=== PATIENT | male | born 1950 | race American Indian/Alaskan Native ===

== ENCOUNTER 2016-09-15 23:04 | Observation (INO) | payer OTHER ==
--- NOTE | 2016-09-15 23:14 | PDOC ---
History of Present Illness - History of Present Illness Initial Comments: 09/15/16 23:30 Patient is a 66 year old male with significant medical hx of HTN, HLD and DM who is presenting to the ED with intermittent chest pain for one week. Patient complains of chest pain that radiates down his left arm. He reports that his pain started while he was working. Today the patient states that his chest pain significantly worsened and decided to come to the ED for evaluation. He reports that his chest pain relieved after receiving NTG in the ED. Denies fever, chills, shortness of breath, nausea, vomiting, diarrhea, or diaphoresis. <Le Singleton - Last Filed: 09/15/16 23:49> <Dequan Blount - Last Filed: 09/16/16 02:46> - General Stated Complaint: CHEST PAIN Time Seen by Provider: 09/15/16 23:08 Past History <Le Singleton - Last Filed: 09/15/16 23:49> - Past Medical History Diabetes: Yes HTN: Yes Hypercholesterolemia: Yes Thyroid Disease: Yes - Family Disease History Family Disease History: Diabetes: Father - Immunization History Immunization Up to Date: Yes - Psycho/Social/Smoking Cessation Hx Anxiety: No Suicidal Ideation: No Smoking Status: No Smoking History: Never smoked Number of Cigarettes Smoked Daily: 0 Hx Alcohol Use: No Drug/Substance Use Hx: No <Dequan Blount - Last Filed: 09/16/16 02:46> - Past Medical History Allergies/Adverse Reactions: Allergies Allergy/AdvReac Type Severity Reaction Status Date / Time No Known Allergies Allergy Verified 09/15/16 23:13 Home Medications: Ambulatory Orders Aspirin [ASA -] 81 mg PO DAILY 09/16/16 Chlorthalidone [Hygroton -] 25 mg PO DAILY 09/16/16 Levothyroxine [Synthroid -] 125 mcg PO DAILY 09/16/16 Lisinopril [Prinivil] 5 mg PO DAILY 09/16/16 Metformin HCl [Glucophage -] 850 mg PO BID 09/16/16 Simvastatin [Zocor -] 40 mg PO HS 09/16/16 Review of Systems - Review of Systems Comments:: 09/15/16 23:49 GENERAL/CONSTITUTIONAL: No fever or chills. No weakness. HEAD, EYES, EARS, NOSE AND THROAT: No change in vision. No ear pain or discharge. No sore throat. CARDIOVASCULAR: Chest pain. No shortness of breath. RESPIRATORY: No cough, wheezing, or hemoptysis. GASTROINTESTINAL: No nausea, vomiting, diarrhea or constipation. GENITOURINARY: No dysuria, frequency, or change in urination. MUSCULOSKELETAL: No joint or muscle swelling or pain. No neck or back pain. SKIN: No rash NEUROLOGIC: No headache, vertigo, loss of consciousness, or change in strength/ sensation. <Le Singleton - Last Filed: 09/15/16 23:49> *Physical Exam - Vital Signs Last Vital Signs Temp Pulse Resp BP Pulse Ox 97.9 F 67 18 171/94 99 09/15/16 23:13 09/15/16 23:13 09/15/16 23:13 09/15/16 23:13 09/15/16 23:13 - Physical Exam Comments: 09/15/16 23:49 GENERAL: Awake, alert, and fully oriented, in no acute distress HEAD: No signs of trauma EYES: PERRLA, EOMI, sclera anicteric, conjunctiva clear ENT: Auricles normal inspection, hearing grossly normal, nares patent, oropharynx clear without exudates. Moist mucosa NECK: Normal ROM, supple, no lymphadenopathy, JVD, or masses LUNGS: Breath sounds equal, clear to auscultation bilaterally. No wheezes, and no crackles HEART: Regular rate and rhythm, normal S1 and S2, no murmurs, rubs or gallops ABDOMEN: Soft, nontender, normoactive bowel sounds. No guarding, no rebound. No masses EXTREMITIES: Normal range of motion, no edema. No clubbing or cyanosis. No cords, erythema, or tenderness NEUROLOGICAL: Cranial nerves II through XII grossly intact. Normal speech, normal gait SKIN: Warm, Dry, normal turgor, no rashes or lesions noted. ENDOCRINE: No increased thirst. No abnormal weight change. HEMATOLOGIC/LYMPHATIC: No anemia, easy bleeding, or history of blood clots. ALLERGIC/IMMUNOLOGIC: No hives or skin allergy. <Le Singleton - Last Filed: 09/15/16 23:49> ED Treatment Course - LABORATORY CBC & Chemistry Diagram: 09/15/16 23:27 09/15/16 23:27 <Le Singleton - Last Filed: 03/19/17 23:49> - LABORATORY CBC & Chemistry Diagram: 09/15/16 23:27 09/15/16 23:27 <Dequan Blount - Last Filed: 09/16/16 02:46> Medical Decision Making - Medical Decision Making 09/16/16 02:06 This is a 42yo m with PMH DM, hypertension, hyperlipidemia and family history of heart disease who presents with chest pressure with radiation to the LEFT arm associated with mild SOB. He has multiple cardiac risk factors and the HPI is concerning for ACS/cardiac etiology; he is not a candidate for discharge based on the ongoing intermittent chest pain. He has multiple risk factors and particularly, as this has been ongoing, he will be admitted for cardiac evaluation; the troponin is negative and will give ASA 324mg PO. I have endorsed the patient to Dr. Negron for telemetry observation. 09/16/16 02:28 09/16/16 02:36 <Dequan Blount - Last Filed: 09/16/16 02:46> *DC/Admit/Observation/Transfer - Attestations Scribe Attestion: 09/15/16 23:50 Documentation prepared by Le Singleton, acting as medical esthetician for Dequan Blount MD. <Le Singleton - Last Filed: 09/15/16 23:49> - Discharge Dispostion Admit: Yes Decision to Admit order Date/Time: 09/16/16 02:31 - Attestations Physician Attestion: 09/16/16 02:33 I, Dr. Dequan Blount MD, attest that this document has been prepared under my direction and personally reviewed by me in its entirety. I further attest, that it accurately reflects all work, treatment, procedures and medical decision -making performed by me. <Dequan Blount - Last Filed: 09/16/16 02:46> Diagnosis at time of Disposition: Atypical chest pain
[2016-09-15 23:15] VITALS: TEMP 97.9; BMI 25.8
[2016-09-15 23:43] LABS: MCH 22.8 pg (25.7-33.7); MEAN CELL VOLUME 71.4 fl (80-96); MEAN PLT VOLUME 8.1 fl (7.5-11.1); PLATELET COUNT 179 K/MM3 (134-434); RDW 16.5 % (11.9-15.9); WHITE BLOOD COUNT 4.6 K/mm3 (4.0-10.0)
[2016-09-15 23:54] LABS: INR 0.95 (0.82-1.09); PROTHROMBIN TIME (PATIENT) 10.4 SEC (9.98-11.88)
[2016-09-16 00:03] LABS: ALBUMIN 3.6 g/dl (3.4-5.0); ANION GAP 7 (8-16); BILIRUBIN,TOTAL 0.2 mg/dL (0.2-1.0); CALCIUM 8.8 mg/dL (8.5-10.1); CO2 29 mmol/L (21-32); CREATININE 1.1 mg/dL (0.7-1.3); GLUCOSE,RANDOM 115 mg/dL (74-106); MAGNESIUM 2.1 mg/dL (1.8-2.4); PHOSPHOROUS 2.9 mg/dL (2.5-4.9); SGOT/AST 17 U/L (15-37); SGPT/ALT 21 U/L (12-78); TOT PROT 6.8 g/dl (6.4-8.2)
[2016-09-16 00:04] LABS: ALK PHOS 65 U/L (45-117); TROPONIN I < 0.02 ng/ml (0.00-0.05)
[2016-09-16 02:05] LABS: ANISOCYTOSIS 1+; HYPOCHROMIA 1+; MICROCYTOSIS 1+; PLATELET COMMENT2 NO CLOTTING DETECTED; PLATELET COMMENT3 FEW LARGE PLTS; PLATELET ESTIMATE ADEQUATE (NORMAL); POLYCHROMASIA 1+
--- NOTE | 2016-09-16 02:28 | PN ---
<Vero Negron - Last Filed: 09/16/16 02:27> Teaching Attending Note Name of Resident: Roxana Acevedo ATTENDING PHYSICIAN STATEMENT I saw and evaluated the patient. I reviewed the resident's note and discussed the case with the resident. I agree with the resident's findings and plan as documented. SUBJECTIVE: OBJECTIVE: ASSESSMENT AND PLAN: <Carrie Olvera - Last Filed: 09/16/16 03:13> Teaching Attending Note ATTENDING PHYSICIAN STATEMENT I saw and evaluated the patient. I reviewed the resident's note and discussed the case with the resident. I agree with the resident's findings and plan as documented. SUBJECTIVE: Patient is a 66 yo M with a PMHx of HTN, HLD and DM who presents with radiating chest pain for one week. Chest pain is intermittent in nature and radiates down left arm. NO fevers chills, nausea vomiting diarrhea or SOB. Patient reports the chest pain radiates down his left arm. He notes that the pain is worsened by movement. Patient notes associated a tingling sensation in his left arm. Patients pain is resolved upon evaluation. Denies fever, chills, shortness of breath, nausea, vomiting, diarrhea, or diaphoresis. OBJECTIVE: Last Vital Signs Temp Pulse Resp BP Pulse Ox 97.9 F 67 18 171/94 99 09/15/16 23:13 09/15/16 23:13 09/15/16 23:13 09/15/16 23:13 09/16/16 00:30 GENERAL: Awake, alert, and fully oriented, in no acute distress HEENT: Atraumatic. PERRLA, EOMI. Moist mucosa. No JVD CHEST: Mild pain on tenderness upon palpation of left breast. LUNGS: No distress, speaks full sentences, clear to auscultation bilaterally HEART: Regular rate and rhythm, normal S1 and S2, no murmurs, rubs or gallops, peripheral pulses normal and equal bilaterally. ABDOMEN: Soft, nontender, normoactive bowel sounds. No guarding, no rebound. No masses EXTREMITIES: Normal inspection, Normal range of motion, no edema. No clubbing or cyanosis. NEUROLOGICAL: Cranial nerves II through XII grossly intact. Normal speech, normal gait, no focal sensorimotor deficits SKIN: Warm, Dry, normal turgor, no rashes or lesions noted. CBCD WBC 4.6 K/mm3 (4.0-10.0) 09/15/16 23:27 RBC 4.53 M/mm3 (4.00-5.60) 09/15/16 23:27 Hgb 10.3 GM/dL (11.7-16.9) L D 09/15/16 23:27 Hct 32.3 % (35.4-49) L D 09/15/16 23:27 MCV 71.4 fl (80-96) L 09/15/16 23:27 MCHC 32.0 g/dl (32.0-35.9) 09/15/16 23:27 RDW 16.5 % (11.9-15.9) H 09/15/16 23:27 Plt Count 179 K/MM3 (134-434) 09/15/16 23:27 MPV 8.1 fl (7.5-11.1) 09/15/16 23:27 CMP Sodium 140 mmol/L (136-145) 09/15/16 23:27 Potassium 3.8 mmol/L (3.5-5.1) D 09/15/16 23:27 Chloride 104 mmol/L (98-107) 09/15/16 23:27 Carbon Dioxide 29 mmol/L (21-32) 09/15/16 23:27 Anion Gap 7 (8-16) L 09/15/16 23:27 BUN 13 mg/dL (7-18) 09/15/16 23:27 Creatinine 1.1 mg/dL (0.7-1.3) 09/15/16 23:27 Creat Clearance w eGFR > 60 (>60) 09/15/16 23:27 Calcium 8.8 mg/dL (8.5-10.1) 09/15/16 23:27 Total Bilirubin 0.2 mg/dL (0.2-1.0) D 09/15/16 23:27 AST 17 U/L (15-37) 09/15/16 23:27 ALT 21 U/L (12-78) 09/15/16 23:27 Alkaline Phosphatase 65 U/L (45-117) D 09/15/16 23:27 Total Protein 6.8 g/dl (6.4-8.2) 09/15/16 23:27 Albumin 3.6 g/dl (3.4-5.0) 09/15/16 23:27 Chest X-Ray Negative ECG Sinus bradycardia @ 54 bpm Mild T wave flattening V1 V2 V4 V5 ASSESSMENT AND PLAN: Patient is a 66 yo M with a PMHx of HTN, HLD and DM who presents with chest pain. 1.) Chest pain -Atypical -Rule ACS -Heart score 3 -Continue aspirin -O2 2 L nasal cannula -Check lipid profile -Continue with aspirin in AM -Continue with statin -Add metoprolol 2.) Microcytic anemia -Stool cult -Iron studies -Needs coloscopy Outpatient 3.) Diabetes -Finger sticks -metformin -check A1C -Rapid acting insulin 4.) HTN -Continue with home meds 5.) HLD -Check lipid panel -Continue home meds DVT ppx -SCDS -Place on Tele/Obs Documentation prepared by Carrie Olvera, acting as senior medical transcriptionist for Vero Negron D.O.
--- NOTE | 2016-09-16 03:26 | HP ---
CHIEF COMPLAINT: Left side chest pain PCP: Dr. Caruso ([facility]) now sees Dr. Jefferson (?) HISTORY OF PRESENT ILLNESS: Patient is a 66 year old male presented with the chief complaints of left sided chest pain. A/c to the patient, he started having left sided chest pain since a week, 5/10 in intensity, pressure type, radiating towards his left arm, gets tingling sensation over the left arm, reproducible, aggravated on movement, relieved at rest, not associated with nausea, vomiting, sob, cough or palpitation. Patient reports that after he was given aspirin and nitroglycerine en route, his chest pain resolved. Denies headache, fever, chills, rigors, sweating, abdominal pain. Bowel/Bladder habit normal. Appetite-normal. Sleep-disturbed. ER course was notable for: (1) Afebrile, Troponin 0.02 (2) EKG: Sinus bradycardia @ 54 bpm; Mild T wave flattening V1 V2 V4 V5 (3) En route was given 324 mg of aspirin and Nitroglycerine Recent Travel: None PAST MEDICAL HISTORY: DM, Hypertension, Hyperlipidemia, Hypothyroidism, Pneumonia with pleural effusion requiring chest tube insertion PAST SURGICAL HISTORY: None Social History: Smoking: Chews tobacco since 9-10 years, denies smoking Alcohol: Denies Drugs: Denies Family History: Unknown Allergies No Known Allergies Allergy (Verified 09/15/16 23:13) HOME MEDICATIONS: Home Medications Medication Instructions Recorded Aspirin [ASA -] 81 mg PO DAILY 09/16/16 Chlorthalidone [Hygroton -] 25 mg PO DAILY 09/16/16 Levothyroxine [Synthroid -] 125 mcg PO DAILY 09/16/16 Lisinopril [Prinivil] 5 mg PO DAILY 09/16/16 Metformin HCl [Glucophage -] 850 mg PO BID 09/16/16 Simvastatin [Zocor -] 40 mg PO HS 09/16/16 REVIEW OF SYSTEMS CONSTITUTIONAL: Absent: fever, chills, diaphoresis, generalized weakness, malaise, loss of appetite, weight change HEENT: Absent: rhinorrhea, nasal congestion, throat pain, throat swelling, difficulty swallowing, mouth swelling, ear pain, eye pain, visual changes CARDIOVASCULAR: Present: Chest pain Absent:syncope, palpitations, irregular heart rate, lightheadedness, peripheral edema RESPIRATORY: Absent: cough, shortness of breath, dyspnea with exertion, orthopnea, wheezing, stridor, hemoptysis GASTROINTESTINAL: Absent: abdominal pain, abdominal distension, nausea, vomiting, diarrhea, constipation, melena, hematochezia GENITOURINARY: Absent: dysuria, frequency, urgency, hesitancy, hematuria, flank pain, genital pain MUSCULOSKELETAL: Absent: myalgia, arthralgia, joint swelling, back pain, neck pain SKIN: Absent: rash, itching, pallor HEMATOLOGIC/IMMUNOLOGIC: Absent: easy bleeding, easy bruising, lymphadenopathy, frequent infections ENDOCRINE: Absent: unexplained weight gain, unexplained weight loss, heat intolerance, cold intolerance NEUROLOGIC: Absent: headache, focal weakness or paresthesias, dizziness, unsteady gait, seizure, mental status changes, bladder or bowel incontinence PSYCHIATRIC: Absent: anxiety, depression, suicidal or homicidal ideation, hallucinations. PHYSICAL EXAMINATION Vital Signs - 24 hr 09/15/16 09/16/16 23:13 00:30 Temperature 97.9 F Pulse Rate 67 Respiratory 18 Rate Blood Pressure 171/94 O2 Sat by Pulse 99 99 Oximetry (%) GENERAL: Awake, alert, and fully oriented, in no acute distress. HEAD: Normal with no signs of trauma. EYES: EOM intact, no pallor or icterus EARS, NOSE, THROAT: Ears normal, nares patent, oropharynx clear without exudates. Moist mucous membranes. NECK: Normal range of motion, supple without lymphadenopathy, JVD, or masses. LUNGS: Breath sounds equal, clear to auscultation bilaterally. No wheezes, and no crackles. No accessory muscle use. HEART: Regular rate and rhythm, normal S1 and S2 without murmur, tenderness on palpation of the left side of the chest ABDOMEN: Soft, nontender, not distended, normoactive bowel sounds, no guarding, no rebound, no masses. No hepatomegaly or splenomegaly. MUSCULOSKELETAL: Normal range of motion at all joints. No bony deformities or tenderness. No CVA tenderness. UPPER EXTREMITIES: 2+ pulses, warm, well-perfused. No cyanosis. No clubbing. No peripheral edema. LOWER EXTREMITIES: 2+ pulses, warm, well-perfused. No calf tenderness. No peripheral edema. NEUROLOGICAL: Cranial nerves II-XII intact. Normal speech. Normal gait. PSYCHIATRIC: Cooperative. Good eye contact. Appropriate mood and affect. SKIN: Warm, dry, normal turgor, no rashes or lesions noted, normal capillary refill. Laboratory Results - last 24 hr 09/15/16 09/15/16 09/15/16 23:10 23:27 23:27 WBC 4.6 RBC 4.53 Hgb 10.3 L D Hct 32.3 L D MCV 71.4 L MCHC 32.0 RDW 16.5 H Plt Count 179 MPV 8.1 Neutrophils % 23.0 L D Lymphocytes % 65.0 H D Monocytes % 5.0 Eosinophils % 3.0 Reactive Lymphocytes 4 Platelet Estimate Adequate Platelet Comment No clotting detected Polychromasia 1+ Hypochromic-Microcytic 1+ Anisocytosis 1+ Microcytosis 1+ INR 0.95 Sodium 140 Potassium 3.8 D Chloride 104 Carbon Dioxide 29 Anion Gap 7 L BUN 13 Creatinine 1.1 Creat Clearance w eGFR > 60 Random Glucose 115 H D Lactic Acid Calcium 8.8 Phosphorus 2.9 Magnesium 2.1 Total Bilirubin 0.2 D AST 17 ALT 21 Alkaline Phosphatase 65 D Creatine Kinase 88 Troponin I < 0.02 B-Natriuretic Peptide 27.67 Total Protein 6.8 Albumin 3.6 Lipase 175 Blood Type Antibody Screen 09/15/16 09/15/16 23:27 23:27 WBC RBC Hgb Hct MCV MCHC RDW Plt Count MPV Neutrophils % Lymphocytes % Monocytes % Eosinophils % Reactive Lymphocytes Platelet Estimate Platelet Comment Polychromasia Hypochromic-Microcytic Anisocytosis Microcytosis INR Sodium Potassium Chloride Carbon Dioxide Anion Gap BUN Creatinine Creat Clearance w eGFR Random Glucose Lactic Acid 1.109 Calcium Phosphorus Magnesium Total Bilirubin AST ALT Alkaline Phosphatase Creatine Kinase Troponin I B-Natriuretic Peptide Total Protein Albumin Lipase Blood Type B POSITIVE Antibody Screen Negative ASSESSMENT/PLAN: Patient is a 66 year old male with significant Past medical history of Hypertension, Hyperlipidemia, Diabetes Mellitus, Hypothyroidism presented with the chief complaints of left sided chest pain. # Atypical chest pain-r/o ACS Could also be due to musculoskeletal as it is reproducible. Patient presented with left sided chest pain x 1 week, radiating towards the left arm with tingling sensation En route was given 324mg of Aspirin and Nitroglycerine and pain resolved completely EKG: Sinus bradycardia @ 54 bpm; Mild T wave flattening V1 V2 V4 V5 Troponin x 1 negative, repeat @ 6am and trend Placed in observation/Telemetry Continuous cardiac cath rn. Continue baby aspirin EKG tomorrow # Hypertension-stable Continue Lisinopril 5mg and Chlorthalidone 25mg Consider adding a beta baldomero # Diabetes Mellitus HbA1c pending Finger stick glucose monitoring Hold Metformin and continue with Insulin sliding scale # Hyperlipidemia Continue Lipitor 20 mg # Hypothyroidism T3, T4 pending Continue Levothyroxine 125 mcg # Microcytic anemia Iron studies ordered for am Stool occult blood Would consider colonoscopy as outpatient # FEN Not on IV fluids Electrolytes to be repeated Diabetic diet # Prophylaxis For DVT- On Scds, patient is ambulating and may be discharged soon. For GI- Not indicated # Code status: Full Code # Dispo: Placed on observation. Duration of stay unknown. Illness, Investigation and Plan of care explained to the patient. He verbalized understanding. Case seen and discussed with Dr. Negron. Visit type - Emergency Visit Emergency Visit: Yes ED Registration Date: 09/16/16 Care time: The patient presented to the Emergency Department on the above date and was hospitalized for further evaluation of their emergent condition. - New Patient This patient is new to me today: Yes Date on this admission: 09/16/16 - Critical Care Critical Care patient: No
[2016-09-16 03:37] LABS: URINE APPEARANCE CLEAR; URINE BILIRUBIN NEGATIVE (NEGATIVE); URINE BLOOD NEGATIVE (NEGATIVE); URINE COLOR LTYELLOW; URINE GLUCOSE (UA) NEGATIVE (NEGATIVE); URINE KETONE NEGATIVE (NEGATIVE); URINE LEUK ESTERASE NEGATIVE (NEGATIVE); URINE NITRITE NEGATIVE (NEGATIVE); URINE PROTEIN NEGATIVE (NEGATIVE); URINE UROBILINOGEN NEGATIVE E.U./dl (0.2-1.0)
[2016-09-16 05:41] LABS: FREE T4 1.06 ng/dl (0.76-1.16); THYROID STIMULATING HORMONE 1.63 uIU/ml (0.358-3.74)
[2016-09-16] MEDS ORDERED: LEVOTHYROXINE NA 125 MCG TABLET (FP) PO SCH (07:00)
[2016-09-16 07:10] LABS: MCH 22.7 pg (25.7-33.7); MCHC 31.6 g/dl (32.0-35.9); MEAN CELL VOLUME 71.7 fl (80-96); MEAN PLT VOLUME 7.7 fl (7.5-11.1); PLATELET COUNT 163 K/MM3 (134-434); WHITE BLOOD COUNT 4.1 K/mm3 (4.0-10.0)
[2016-09-16] MEDS: INSULIN SLIDING SCALE (NOVOLOG) 1 VIAL SQ SCH ×2 (07:37→11:43)
[2016-09-16 07:50] LABS: ALBUMIN 3.5 g/dl (3.4-5.0); ANION GAP 5 (8-16); BILIRUBIN,TOTAL 0.3 mg/dL (0.2-1.0); CALCIUM 8.7 mg/dL (8.5-10.1); CHOLESTEROL 160 mg/dL (50-200); CO2 29 mmol/L (21-32); CREATININE 0.9 mg/dL (0.7-1.3); GLUCOSE,RANDOM 108 mg/dL (74-106); SGOT/AST 15 U/L (15-37); SGPT/ALT 22 U/L (12-78)
[2016-09-16 07:51] LABS: ALK PHOS 52 U/L (45-117); TOT PROT 6.6 g/dl (6.4-8.2)
[2016-09-16 07:52] LABS: LDL CHOLESTEROL (ONLY SJRH) 84 mg/dL (5-100)
[2016-09-16 08:49] LABS: MAGNESIUM 2.2 mg/dL (1.8-2.4); PHOSPHOROUS 2.9 mg/dL (2.5-4.9)
[2016-09-16 08:51] LABS: FREE T4 1.07 ng/dl (0.76-1.16)
[2016-09-16 08:56] LABS: THYROID STIMULATING HORMONE 1.65 uIU/ml (0.358-3.74)
[2016-09-16] MEDS ORDERED: CHLORTHALIDONE 25 MG TABLET PO SCH (10:00)
[2016-09-16] MEDS ORDERED: LISINOPRIL 5 MG TABLET (FP) PO SCH (10:00)
[2016-09-16] MEDS ORDERED: ASPIRIN 81 MG CHEWABLE TABLETS PO SCH (10:00)
[2016-09-16 10:19] LABS: TROPONIN I < 0.02 ng/ml (0.00-0.05)
--- NOTE | 2016-09-16 11:38 | CON.CARD ---
Consult Consult Specialty:: Cardiology Referred by:: Hospitalist Medicine Reason for Consultation:: Chest pain - History of Present Illness Chief Complaint: Chest pain History of Present Illness: Patient is a 66 yo M with a PMHx of HTN, HLD, DM, hypothyroidism, pneumonia with pleural effusion requiring chest tube insertion presented with sharp, non- exertional, non-positional atypical chest pain with radiation down left arm for last week. He denies associated sxs pf dyspnea, near or true syncope, orthopnea , PND, LE edema, palpitations. Currently asymptomatic. - History Source History Provided By: Patient Limitations to Obtaining History: No Limitations - Past Medical History Cardio/Vascular: Yes: HTN, Hyperlipdemia Endocrine: Yes: Diabetes Mellitus, Hypothyroidism - Alcohol/Substance Use Hx Alcohol Use: No - Smoking History Smoking history: Never smoked Aproximately how many cigarettes per day: 0 Home Medications - Allergies Allergies/Adverse Reactions: Allergies Allergy/AdvReac Type Severity Reaction Status Date / Time No Known Allergies Allergy Verified 09/15/16 23:13 - Home Medications Home Medications: Ambulatory Orders Aspirin [ASA -] 81 mg PO DAILY 09/16/16 Chlorthalidone [Hygroton -] 25 mg PO DAILY 09/16/16 Levothyroxine [Synthroid -] 125 mcg PO DAILY 09/16/16 Lisinopril [Prinivil] 5 mg PO DAILY 09/16/16 Metformin HCl [Glucophage -] 850 mg PO BID 09/16/16 Simvastatin [Zocor -] 40 mg PO HS 09/16/16 Review of Systems - Review of Systems Cardiovascular: reports: Chest Pain Vital Signs: Vital Signs Temperature 97.9 F 09/15/16 23:13 Pulse Rate 58 L 09/16/16 07:10 Respiratory Rate 19 09/16/16 07:10 Blood Pressure 127/78 09/16/16 07:10 O2 Sat by Pulse Oximetry (%) 98 09/16/16 07:10 Constitutional: Yes: No Distress, Calm Neck: Yes: Supple Respiratory: Yes: Regular, CTA Bilaterally Gastrointestinal: Yes: Normal Bowel Sounds, Soft Cardiovascular: Yes: Regular Rate and Rhythm JVD: No Carotid Bruit: No Heart Sounds: Yes: S1, S2 Edema: No - Other Data Labs, Other Data: CBC, BMP 09/16/16 05:52 09/16/16 05:52 INR, PTT INR 0.95 (0.82-1.09) 09/15/16 23:10 Troponin, BNP 09/16/16 09/16/16 05:52 05:52 Troponin I < 0.02 Cancelled Troponin, BNP 09/16/16 09/16/16 05:52 05:52 Troponin I < 0.02 Cancelled SB @ 54 with nonspec T w changes Imaging - Results Chest X-ray: Report Reviewed (NAD) Problem List - Problems (1) Atypical chest pain Code(s): R07.89 - OTHER CHEST PAIN (2) Hypertension Code(s): I10 - ESSENTIAL (PRIMARY) HYPERTENSION Qualifiers: Hypertension type: essential hypertension Qualified Code(s): I10 - Essential (primary) hypertension (3) Hyperlipidemia Code(s): E78.5 - HYPERLIPIDEMIA, UNSPECIFIED Qualifiers: Hyperlipidemia type: pure hypercholesterolemia Qualified Code(s): E78.00 - Pure hypercholesterolemia, unspecified; E78.0 - Pure hypercholesterolemia (4) Hypothyroidism Code(s): E03.9 - HYPOTHYROIDISM, UNSPECIFIED Qualifiers: Hypothyroidism type: unspecified Qualified Code(s): E03.9 - Hypothyroidism, unspecified (5) Diabetes mellitus Code(s): E11.9 - TYPE 2 DIABETES MELLITUS WITHOUT COMPLICATIONS Qualifiers: Diabetes mellitus type: type 2 Assessment/Plan 1. Chest pain syndrome with atypical features 2. HTN 3. DM 4. Hyperlipidemia 5. Anemia 6. Hypothyroidism P:1. Ruled out for AL 2. Echo to assess LV and valve fxn 3. ETT r/o ischemia 4. Agree with ASA 81 qd, lisinopril 5 qd, chlorthalidone 25 qd, lipitor 20 qd 5. Further recommendations to follow, thank you for consultative opportunity
--- NOTE | 2016-09-16 14:43 | TRE ---
Protocol Name : BILLY Max Work Load (METS*10) : 85 Time In Exercise Phase : 00:07:00 Max. Systolic BP : 147 mmHg Max Diastolic BP : 76 mmHg Max Heart Rate : 150 BPM Max Predicted Heart Rate : 156 BPM Attending Physician : DR. CARRANZA Reason For Termination : Target Heart Rate Achieved Reason for Test : CHEST PAIN Stress Protocol : BILLY Rest HR : 53 BPM PeakEx METs : 8.5 METS Arrhythmias : No Arrhythmias Resting ECG : NSR NON-SPECIFIC ST-T CHANGES Recovery ECG Response (OLD) : Chest Pain : No Chest Pain HR Response To Exercise : Normal Overall HR Response To Exercise BP Response To Exercise : Normal Resting BP with Appropriate Response Functional Capacity : Normal Diagnosis : 1. Borderline abnormal stress test 2. Appropriate blood pressure response 3. Fair exercise tolerance and capacity 4. [address] segment depression was seen in inferior and lateral leads (II ,III, AVF, V5, V6) Confirmed by ALEAH CARRANZA MD ([id number]) on 09/16/2016 2:42:46 PM
--- NOTE | 2016-09-16 15:56 | DS ---
Physical Exam: SUBJECTIVE: Patient seen and examined. No further c/o chest pain. Denies SOB, palpitations, abdominal pain, N/V/D. Exercise stress test and echo done. OBJECTIVE: Vital Signs 3 Period Temp Pulse Resp BP Sys/العراقي Pulse Ox Last 24 Hr 58 19 127/78 98 PHYSICAL EXAM GENERAL: The patient is awake, alert, and fully oriented, in no acute distress. HEAD: Normal with no signs of trauma. EYES: PERRL, extraocular movements intact, sclera anicteric, conjunctiva clear. ENT: Ears normal, nares patent, oropharynx clear without exudates, moist mucous membranes. NECK: Trachea midline, full range of motion, supple. LUNGS: Breath sounds equal, clear to auscultation bilaterally, no wheezes, no crackles, no accessory muscle use. HEART: Regular rate and rhythm, S1, S2 without murmur, rub or gallop. ABDOMEN: Soft, nontender, nondistended, normoactive bowel sounds, no guarding, no rebound, no hepatosplenomegaly, no masses. EXTREMITIES: 2+ pulses, warm, well-perfused, no edema. NEUROLOGICAL: Cranial nerves II through XII grossly intact. Normal speech, gait not observed. PSYCH: Normal mood, normal affect. SKIN: Warm, dry, normal turgor, no rashes or lesions noted. LABS Laboratory Results - last 24 hr 3 09/16/16 09/16/16 09/16/16 03:25 05:52 05:52 WBC 4.1 RBC 4.63 Hgb 10.5 L Hct 33.2 L MCV 71.7 L MCHC 31.6 L RDW 17.0 H Plt Count 163 MPV 7.7 Neutrophils % 12.0 L D Lymphocytes % 61.0 H Monocytes % 3.0 L Eosinophils % 2.0 Basophils % 1.0 D Differential Comment Manual diff done Reactive Lymphocytes 21 D Sodium Potassium Chloride Carbon Dioxide Anion Gap BUN Creatinine Creat Clearance w eGFR POC Glucometer Random Glucose Calcium Ferritin Total Bilirubin AST ALT Alkaline Phosphatase Creatine Kinase Troponin I Total Protein Albumin Triglycerides 96 Cholesterol 160 Total LDL Cholesterol 84 HDL Cholesterol 68 H Urine Color Ltyellow Urine Appearance Clear Urine pH 6.0 Ur Specific [place] 1.017 Urine Protein Negative Urine Glucose (UA) Negative Urine Ketones Negative Urine Blood Negative Urine Nitrite Negative Urine Bilirubin Negative Urine Urobilinogen Negative Ur Leukocyte Esterase Negative 3 09/16/16 09/16/16 09/16/16 05:52 05:52 05:52 WBC RBC Hgb Hct MCV MCHC RDW Plt Count MPV Neutrophils % Lymphocytes % Monocytes % Eosinophils % Basophils % Differential Comment Reactive Lymphocytes Sodium 139 Potassium 4.1 Chloride 105 Carbon Dioxide 29 Anion Gap 5 L BUN 15 Creatinine 0.9 Creat Clearance w eGFR > 60 POC Glucometer Random Glucose 108 H Calcium 8.7 Ferritin 3.799 L Total Bilirubin 0.3 D AST 15 ALT 22 Alkaline Phosphatase 52 Creatine Kinase 71 Cancelled Troponin I < 0.02 Cancelled Total Protein 6.6 Albumin 3.5 Triglycerides Cholesterol Total LDL Cholesterol HDL Cholesterol Urine Color Urine Appearance Urine pH Ur Specific [place] Urine Protein Urine Glucose (UA) Urine Ketones Urine Blood Urine Nitrite Urine Bilirubin Urine Urobilinogen Ur Leukocyte Esterase 3 09/16/16 09/16/16 07:35 11:42 WBC RBC Hgb Hct MCV MCHC RDW Plt Count MPV Neutrophils % Lymphocytes % Monocytes % Eosinophils % Basophils % Differential Comment Reactive Lymphocytes Sodium Potassium Chloride Carbon Dioxide Anion Gap BUN Creatinine Creat Clearance w eGFR POC Glucometer 127.98415 141.84679 Random Glucose Calcium Ferritin Total Bilirubin AST ALT Alkaline Phosphatase Creatine Kinase Troponin I Total Protein Albumin Triglycerides Cholesterol Total LDL Cholesterol HDL Cholesterol Urine Color Urine Appearance Urine pH Ur Specific [place] Urine Protein Urine Glucose (UA) Urine Ketones Urine Blood Urine Nitrite Urine Bilirubin Urine Urobilinogen Ur Leukocyte Esterase Exercise Stress Test: 1. Borderline abnormal stress test. 2. Appropriate blood pressure response. 3. Fair exercise tolerance and capacity 4. 1mm ST segment depression seen in inferior and lateral leads: II, II, aVF, V5 , V6 HOSPITAL COURSE: Date of Admission:09/16/16 Date of Discharge: 09/16/16 This is a 66 year old male with a past medical history of DM, Hypertension, Hyperlipidemia, Hypothyroidism, Pneumonia with pleural effusion requiring chest tube insertion who was admitted for chest pain evaluation. Pt states he has been having chest pain for about a week. Denies any aggravating or alleviating factors. He was ruled out for acute HI, troponins negative. He underwent exercise stress testing. Discussed results with cardiology who felt that ST depressions were not significant as they were less than 2mm. Pt with no further chest pain. Cleared for outpatient follow up with cardiology. Discussed at length with patient and urged to follow up with cardiology within one week. Echo report is still pending. Cardiology aware, will follow up as outpatient. ASSESSMENT AND PLAN Atypical chest pain - R/o for HI, Stress test with no significant findings. - outpatient cardiology follow up. DM - A1c 6.6, good control, cont f/u with PCP at [facility]. HTN - BP stable. cont current home medications. HLD - LDL 84, cont home zocor Anemia - f/u with PCP at [facility], likely iron deficiency. Hypothyroidism - TSH WNL, cont current home dosing Dispo: Pt dc home witho outpatient cardiology and PCP follow up. Minutes to complete discharge: 45 Discharge Summary Reason For Visit: CHEST PAIN Current Active Problems Atypical chest pain (Acute) Diabetes mellitus (Acute) Hyperlipidemia (Acute) Hypertension (Acute) Hypothyroidism (Acute) Condition: Good - Instructions Diet, Activity, Other Instructions: Return to the ER for new or worsening Chest pain. You had a stress test and an echocardiogram. Please follow up with Dr. Velazquez. If Dr. Velazquez does not take your insurance, please follow up with [facility] to obtain a layer off there. Follow up with your primary care provider at [facility] within 1-2 weeks. You may resume your normal activities. You should eat a low sodium, low fat diet. Referrals: Derek Velazquez MD [Staff Physician] - Disposition: HOME - Home Medications Comprehensive Discharge Medication List: Ambulatory Orders Amlodipine Besylate [Norvasc -] 2.5 mg PO DAILY #30 tablet 09/16/16 Aspirin [ASA -] 81 mg PO DAILY 09/16/16 Levothyroxine [Synthroid -] 125 mcg PO DAILY 09/16/16 Lisinopril [Prinivil] 5 mg PO DAILY 09/16/16 Metformin HCl [Glucophage -] 850 mg PO BID 09/16/16 Simvastatin [Zocor -] 40 mg PO HS 09/16/16 This patient is new to me today: Yes Date on this admission: 09/16/16 Emergency Visit: Yes ED Registration Date: 09/15/16 Care time: The patient presented to the Emergency Department on the above date and was hospitalized for further evaluation of their emergent condition. Critical Care patient: No - Discharge Referral Referred to [facility] Med P.C.: No
[2016-09-16 16:55] VITALS: BP 149/76; PULSE 60
[2016-09-16] MEDS ORDERED: ATORVASTATIN CA 20 MG TABLET (FP) PO SCH (22:00)
[2016-09-17 06:06] LABS: SERUM IRON 28 ug/dL (38-169); TOTAL IRON BINDING CAPACITY 429 ug/dL (250-450); UIBC 401 ug/dL (111-343)
[2016-09-17] MEDS ORDERED: amLODIPine BESYLATE 2.5 MG TABLET (FP) PO SCH (10:00)
--- NOTE | 2016-09-17 17:12 | EKG ---
Test Reason : Blood Pressure : / mmHG Vent. Rate : 054 BPM Atrial Rate : 054 BPM P-R Int : 162 ms QRS Dur : 112 ms QT Int : 418 ms P-R-T Axes : 073 054 -36 degrees QTc Int : 396 ms SINUS BRADYCARDIA WITH SINUS ARRHYTHMIA T WAVE ABNORMALITY, CONSIDER INFEROLATERAL ISCHEMIA ABNORMAL ECG WHEN COMPARED WITH ECG OF 01-OCT-2008 05:10, VENT. RATE HAS DECREASED BY 36 BPM T WAVE VARIATION Confirmed by DILLON VITALE, ALEAH ([id number]) on 09/17/2016 5:12:27 PM Referred By: Confirmed By:ALEAH CARRANZA MD
== END 2016-09-16 17:00 | disposition home or self-care (01) ==
LOC: JER 23:04 → JERBED 09-16 02:34
PROVIDERS: ADMIT Internal Medicine; ATTEND Nurse Practitioner Family
DX: R07.89 Other chest pain (principal); E11.9 Type 2 diabetes mellitus without complications; E78.5 Hyperlipidemia, unspecified; I10 Essential (primary) hypertension; E03.9 Hypothyroidism, unspecified; D50.9 Iron deficiency anemia, unspecified
CPT/HCPCS: 36415; 71010-TC; 71020-TC; 80053; 80061; 81003; 82550; 82728; 83036; 83540; 83550; 83605; 83690; 83721; 83735; 83880; 84100; 84439; 84443; 84466; 84481; 84484; 85025; 85610; 86850; 86900; 86901; 93005; 93010; 93017; 93018; 93306-TC; 99285-25; G0378

== ENCOUNTER 2018-05-24 18:25 | Emergency (ER) | payer OTHER ==
[2018-05-24 18:32] VITALS: BP 139/63; PULSE 100; TEMP 98.3; BMI 25.0
--- NOTE | 2018-05-24 18:45 | PDOC ---
History of Present Illness - General Chief Complaint: Respiratory Stated Complaint: FLU LIKE SYMPTOMS Time Seen by Provider: 05/24/18 18:41 History Source: Patient Exam Limitations: No Limitations - History of Present Illness Initial Comments: 05/24/18 18:42 Patient came for evaluation of persistent cough and fevers over the past week. States has been using kwqa-rhy-[id number] medications week long but does not feel is improving and in fact becoming worse. Did not take his temperature but states he had fevers and chills, and has been coughing up copious amount of thick yellowish phlegm. Timing/Duration: reports: getting worse Severity: reports: mild Associated Symptoms: reports: cough, fever/chills, nasal congestion, nasal drainage Past History - Travel Traveled outside of the country in the last 30 days: No Close contact w/someone who was outside of country & ill: No - Past Medical History Allergies/Adverse Reactions: Allergies Allergy/AdvReac Type Severity Reaction Status Date / Time No Known Allergies Allergy Verified 09/15/16 23:13 Home Medications: Ambulatory Orders Amlodipine Besylate [Norvasc -] 2.5 mg PO DAILY #30 tablet 09/16/16 Aspirin [ASA -] 81 mg PO DAILY 09/16/16 Levothyroxine [Synthroid -] 125 mcg PO DAILY 09/16/16 Lisinopril [Prinivil] 5 mg PO DAILY 09/16/16 Simvastatin [Zocor -] 40 mg PO HS 09/16/16 metFORMIN HCL [Glucophage -] 850 mg PO BID 09/16/16 Albuterol Sulfate Inhaler - [Ventolin HFA Inhaler -] 1 - 2 inh PO Q4H #1 inhaler 05/24/18 Azithromycin [Zithromax -] 250 mg PO UTDICT #6 tab 05/24/18 COPD: No Diabetes: Yes HTN: Yes Hypercholesterolemia: Yes Thyroid Disease: Yes - Family Disease History Family Disease History: Diabetes: Father - Immunization History Immunization Up to Date: Yes - Suicide/Smoking/Psychosocial Hx Smoking Status: No Smoking History: Never smoked Number of Cigarettes Smoked Daily: 0 Hx Alcohol Use: No Drug/Substance Use Hx: No Review of Systems - Review of Systems Able to Perform ROS?: Yes Is the patient limited Guatemalan proficient: Yes Constitutional: Yes: Symptoms Reported, See HPI, Chills, Fever, Loss of Appetite , Malaise HEENTM: Yes: Symptoms Reported, Nose Congestion, Throat Pain Respiratory: Yes: Symptoms reported, See HPI, Cough, Shortness of Breath, Wheezing Musculoskeletal: No: Symptoms Reported Neurological: No: Symptoms reported All Other Systems: Reviewed and Negative *Physical Exam - Vital Signs Last Vital Signs Temp Pulse Resp BP Pulse Ox 98.3 F 100 H 20 139/63 100 05/24/18 18:31 05/24/18 18:31 05/24/18 18:31 05/24/18 18:31 05/24/18 18:31 - Physical Exam General Appearance: Yes: Nourished, Appropriately Dressed, Apparent Distress, Mild Distress HEENT: positive: CHESTER, Normal ENT Inspection, TMs Normal (congested but land pryor easily v), Pharynx Normal (with posterio), Nasal Congestion, Rhinorrhea Neck: positive: Supple. negative: Tender, Lymphadenopathy (R), Lymphadenopathy (L) Respiratory/Chest: positive: Decreased Breath Sounds. negative: Chest Tender, Lungs Clear, Respiratory Distress, Wheezing (tight and diminished breath sounds) Gastrointestinal/Abdominal: positive: Soft. 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 Much improved after 2 duonebs. Will receive meds tomorrow at [facility]. *DC/Admit/Observation/Transfer Diagnosis at time of Disposition: Upper respiratory infection, acute - Discharge Dispostion Disposition: HOME Condition at time of disposition: Stable Decision to Admit order: No - Referrals - Patient Instructions Printed Discharge Instructions: DI for Acute Bronchitis Additional Instructions: Rest, drink lots of fluids: Teas, water, soups, Pedialyte Saltwater gargles Steamy showers/seem to face break up mucus Avoid contact with others until fevers and cough resolved Lots of handwashing and good hygiene Continue [id number] medications for symptomatic relief Tylenol or Motrin for fever and pain Continue albuterol nebulizers every 4-6 hours for the next 2 days then as needed for continued cough Azithromycin as directed Followup with private physician in one to 2 days Return to emergency department / pediatric hospital for worsened symptoms, fevers, dehydration - Post Discharge Activity Forms/Work/School Notes: Back to Work
[2018-05-24] MEDS: ALBUTEROL SO4 2.5/IPRATROPIUM 0.5 INH SOL 3 ML VIAL.NEB. NEB SCH ×2 (18:50→19:08)
== END 2018-05-24 19:30 | disposition home or self-care (01) ==
LOC: JERFT 18:25
PROC: 3E0F7GC Introduction of Other Therapeutic Substance into Respiratory Tract, Via Natural or Artificial Opening (ICD-10-PCS; principal; 2018-05-24)
DX: J06.9 Acute upper respiratory infection, unspecified (principal); I10 Essential (primary) hypertension; E78.00 Pure hypercholesterolemia, unspecified; E11.9 Type 2 diabetes mellitus without complications; Z79.84 Long term (current) use of oral hypoglycemic drugs; E03.9 Hypothyroidism, unspecified
CPT/HCPCS: 94640; 99281-25

== ENCOUNTER 2019-02-05 22:30 | Inpatient (IN) | payer OTHER ==
[2019-02-06] MEDS ORDERED: METOCLOPRAMIDE HCL INJECTION 10 MG/2 ML VIAL IVPB ONE (00:44)
[2019-02-06] MEDS ORDERED: SODIUM CHLORIDE 1,000 ML IV STA (00:44)
[2019-02-06] MEDS ORDERED: ACETAMINOPHEN 1000 MG/100 ML VIAL (NON FORMULARY) IVPB ONE (00:44)
[2019-02-06] MEDS ORDERED: ACETAMINOPHEN INJECTION 100 ML IVPB ONE (01:22)
[2019-02-06] MEDS ORDERED: METOCLOPRAMIDE HCL INJECTION 10 MG/2 ML VIAL ONE (01:23)
[2019-02-06 01:25] LABS: PH,URINE 7.5 (5.0-8.0); URINE APPEARANCE CLEAR; URINE BILIRUBIN NEGATIVE (NEGATIVE); URINE COLOR DK YELLOW; URINE GLUCOSE (UA) NEGATIVE (NEGATIVE); URINE KETONE NEGATIVE (NEGATIVE); URINE LEUK ESTERASE NEGATIVE (NEGATIVE); URINE NITRITE NEGATIVE (NEGATIVE); URINE PROTEIN NEGATIVE (NEGATIVE)
[2019-02-06 01:31] LABS: BASO % 0.5 % (0-2.0); EOS % 2.8 % (0-4.5); HEMATOCRIT 41.2 % (35.4-49); HEMOGLOBIN 14.2 GM/dL (11.7-16.9); LYMPH % 28.5 % (8-40); MCH 30.8 pg (25.7-33.7); MCHC 34.5 g/dl (32.0-35.9); MEAN CELL VOLUME 89.3 fl (80-96); MEAN PLT VOLUME 8.9 fl (7.5-11.1); MONO % 14.6 % (3.8-10.2); NEUT % 53.6 % (42.8-82.8); PLATELET COUNT 139 K/MM3 (134-434); RBC 4.62 M/mm3 (4.00-5.60); RDW 15.2 % (11.9-15.9); WHITE BLOOD COUNT 5.1 K/mm3 (4.0-10.0)
[2019-02-06 01:58] LABS: ALBUMIN 3.2 g/dl (3.4-5.0); BILIRUBIN,TOTAL 2.2 mg/dL (0.2-1); BLOOD UREA NITROGEN 13.4 mg/dL (7-18); CALCIUM 8.8 mg/dL (8.5-10.1); CREATININE 0.8 mg/dL (0.55-1.3); POTASSIUM 3.8 mmol/L (3.5-5.1)
[2019-02-06 01:59] LABS: INR 1.08 (0.83-1.09); PROTHROMBIN TIME (PATIENT) 12.7 SEC (9.7-13.0)
--- NOTE | 2019-02-06 02:09 | PDOC ---
History of Present Illness - General Chief Complaint: Headache Stated Complaint: FEVER Time Seen by Provider: 02/06/19 00:04 History Source: Patient Exam Limitations: No Limitations Past History - Past Medical History Allergies/Adverse Reactions: Allergies Allergy/AdvReac Type Severity Reaction Status Date / Time No Known Allergies Allergy Verified 02/05/19 23:30 Home Medications: Ambulatory Orders Amlodipine Besylate [Norvasc -] 2.5 mg PO DAILY #30 tablet 09/16/16 Aspirin [ASA -] 81 mg PO DAILY 09/16/16 Levothyroxine [Synthroid -] 125 mcg PO DAILY 09/16/16 Lisinopril [Prinivil] 5 mg PO DAILY 09/16/16 Simvastatin [Zocor -] 40 mg PO HS 09/16/16 metFORMIN HCL [Glucophage -] 850 mg PO BID 09/16/16 Albuterol Sulfate Inhaler - [Ventolin HFA Inhaler -] 1 - 2 inh PO Q4H #1 inhaler 05/24/18 Azithromycin [Zithromax -] 250 mg PO UTDICT #6 tab 05/24/18 COPD: No Diabetes: Yes (NIDDM) HTN: Yes Hypercholesterolemia: Yes Thyroid Disease: Yes (hypothyroid) - Family Disease History Family Disease History: Diabetes: Father - Immunization History Immunization Up to Date: Yes - Suicide/Smoking/Psychosocial Hx Smoking Status: No Smoking History: Never smoked Number of Cigarettes Smoked Daily: 0 Hx Alcohol Use: No Drug/Substance Use Hx: No *Physical Exam - Vital Signs Last Vital Signs Temp Pulse Resp BP Pulse Ox 98.9 F 78 20 133/63 98 02/05/19 22:37 02/05/19 22:37 02/05/19 22:37 02/05/19 22:37 02/05/19 22:37 ED Treatment Course - LABORATORY CBC & Chemistry Diagram: 02/06/19 01:05 02/06/19 01:05 - ADDITIONAL ORDERS Additional order review: Laboratory Results 02/06/19 02/06/19 02/06/19 01:05 01:05 01:05 PT with INR 12.70 INR 1.08 Sodium 140 Potassium 3.8 Chloride 105 Carbon Dioxide 28 Anion Gap 7 L BUN 13.4 Creatinine 0.8 Est GFR (CKD-EPI)AfAm 107.89 Est GFR (CKD-EPI)NonAf 93.09 Random Glucose 132 H Calcium 8.8 Total Bilirubin 2.2 H AST 627 H ALT 844 H Alkaline Phosphatase 212 H Total Protein 7.0 Albumin 3.2 L Urine Color Dk yellow Urine Appearance Clear Urine pH 7.5 D Ur Specific [place] 1.015 Urine Protein Negative Urine Glucose (UA) Negative Urine Ketones Negative Urine Blood Negative Urine Nitrite Negative Urine Bilirubin Negative Urine Urobilinogen 1.0 Ur Leukocyte Esterase Negative 02/06/19 01:05 RBC 4.62 MCV 89.3 MCHC 34.5 RDW 15.2 D MPV 8.9 D Neutrophils % 53.6 D Lymphocytes % 28.5 D Monocytes % 14.6 H D Eosinophils % 2.8 Basophils % 0.5 - RADIOLOGY Radiology Studies Ordered: Category Date Time Status CHEST PA & LAT [RAD] Stat Radiology 02/06/19 00:44 Taken - Medications Given in the ED: ED Medications Discontinued Medications Generic Name Dose Route Start Last Admin Trade Name Freq PRN Reason Stop Dose Admin Acetaminophen 1,000 mg 02/06/19 00:44 02/06/19 01:55 Ofirmev Injection - IVPB 02/06/19 00:45 1,000 mg ONCE ONE Administration Diphenhydramine HCl 25 mg 02/06/19 00:44 02/06/19 01:55 Benadryl Injection - IVPB 02/06/19 00:45 25 mg ONCE ONE Administration Sodium Chloride 1,000 mls @ 1,000 mls/hr 02/06/19 00:44 02/06/19 01:55 Normal Saline - IV 02/06/19 01:43 1,000 mls/hr ASDIR STA Administration Metoclopramide HCl 10 mg 02/06/19 00:44 02/06/19 01:55 Reglan Injection - IVPB 02/06/19 00:45 10 mg ONCE ONE Administration
--- NOTE | 2019-02-06 04:05 | PDOC ---
Documentation entered by Norma Marte SCRIBE, acting as scribe for Nani Clark MD. Nani Clark MD: This documentation has been prepared by the Rosanna rodriguez Mackenzie, SCRIBE, under my direction and personally reviewed by me in its entirety. I confirm that the documentation accurately reflects all work, treatment, procedures, and medical decision making performed by me. Attending Attestation - Resident Resident Name: Kevin Patel - ED Attending Attestation I have performed the following: I have examined & evaluated the patient, The case was reviewed & discussed with the resident, I agree w/resident's findings & plan - HPI HPI: Patient is a 68 year old male with a significant PMH of hypothyroidism, HTN, and DM, presenting to the ED with an intermittent headache in the frontal portion of his head since this morning. Patient states administering tylenol however he did not experience any relief. Patient endorses a subjective fever today. He notes two similar episodes this week however after administering tylenol symptoms subsided. The patient denies chest pain, shortness of breath, and dizziness. Denies fever, chills, nausea, vomiting, diarrhea and constipation. Denies dysuria, frequency, urgency and hematuria. Allergies: NKDA 02/06/19 01:19 - Physicial Exam PE: GENERAL: Awake, alert, and fully oriented, in no acute distress HEAD: No signs of trauma EYES: PERRLA, EOMI, sclera anicteric, conjunctiva clear ENT: Auricles normal inspection, hearing grossly normal, nares patent, oropharynx clear without exudates. Moist mucosa NECK: Normal ROM, supple, no lymphadenopathy, JVD, or masses LUNGS: Breath sounds equal, clear to auscultation bilaterally. No wheezes, and no crackles HEART: Regular rate and rhythm, normal S1 and S2, no murmurs, rubs or gallops ABDOMEN: Soft, nontender, normoactive bowel sounds. No guarding, no rebound. No masses EXTREMITIES: Normal range of motion, no edema. No clubbing or cyanosis. No cords, erythema, or tenderness NEUROLOGICAL: Cranial nerves II through XII grossly intact. Normal speech, normal gait SKIN: Warm, Dry, normal turgor, no rashes or lesions noted. 02/06/19 01:57 - Medical Decision Making 02/06/19 01:42 bilateral arm BPs are normal. 02/06/19 02:00 Pt has elevated LFTs and elevated Tbili and elevated alk phos. 02/06/19 04:04 Patient Name: ASHISH BRAR THIS IS A PRELIMINARY REPORT FROM [facility] DATE OF SERVICE: 2019-02-06 01:41:09 IMAGES: 253 EXAM: SINUS CT W/O CONTRAST HISTORY: 68-Year-Old Male Headache. COMPARISON: February 06, 2019 FINDINGS: Moderate mineralization of the bilateral basal ganglia. Mild mucosal thickening in the sinuses. The bilateral mastoid air cells are clear within the [id number]. No acute fracture or dislocation. Globes and retro-orbital soft tissues appear unremarkable. Mild fatty atrophy of the parotid glands. The teeth are absent on the lighting fixture installer view. 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 Chronic small well corticated degenerative osteophyte fracture fragment near the tip of the dens. IMPRESSION Mild sinusitis. 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 Chronic small well corticated degenerative osteophyte fracture fragment near the tip of the dens. Moderate mineralization of the bilateral basal ganglia. If clinically indicated follow-up outpatient MRI Brain may be needed.
--- NOTE | 2019-02-06 04:14 | HP ---
CHIEF COMPLAINT: headache PCP: Dr. Rowland HISTORY OF PRESENT ILLNESS: 68 year old male with PMH of hypothyroidism, HTN, HLD and DM, arrived to ED with an intermittent headache in the frontal portion of his head since this morning. Patient states taking tylenol however he did not experience any relief. Patient two similar episodes this week after tylenol which subsided. Patient denies chest pain, shortness of breath, and dizziness, fever, chills, nausea, vomiting, diarrhea and constipation. Denies dysuria, frequency, urgency and hematuria. ER course was notable for: (1) CT head/Sinus : mild sinusitis (2)elevated LFTs and elevated Tbili and elevated alk phos- GI follow up Recent Travel: no PAST MEDICAL HISTORY: DM, HTN, HLD, Hypothyroidism PAST SURGICAL HISTORY: no Social History: Smoking:no (chews tobacco daily) Alcohol:no Drugs: no Family History: Father ( - [place], DM), Mother ( - liver Cancer ) Allergies: No Known Allergies Allergy (Verified 02/05/19 23:30) HOME MEDICATIONS: Home Medications Medication Instructions Recorded Amlodipine Besylate [Norvasc -] 2.5 mg PO DAILY #30 tablet 09/16/16 Aspirin [ASA -] 81 mg PO DAILY 09/16/16 Levothyroxine [Synthroid -] 125 mcg PO DAILY 09/16/16 Lisinopril [Prinivil] 5 mg PO DAILY 09/16/16 Simvastatin [Zocor -] 40 mg PO HS 09/16/16 metFORMIN HCL [Glucophage -] 850 mg PO BID 09/16/16 Albuterol Sulfate Inhaler - 1 - 2 inh PO Q4H #1 inhaler 05/24/18 [Ventolin HFA Inhaler -] REVIEW OF SYSTEMS CONSTITUTIONAL: Absent: fever, chills, diaphoresis, generalized weakness HEENT: + headache ; Absent: rhinorrhea, nasal congestion, throat pain, throat swelling, difficulty swallowing, mouth swelling, ear pain, eye pain CARDIOVASCULAR: Absent: chest pain, syncope, palpitations, irregular heart rate , lightheadedness, peripheral edema RESPIRATORY: Absent: cough, shortness of breath, dyspnea with exertion, orthopnea, wheezing, stridor, hemoptysis GASTROINTESTINAL:Absent: abdominal pain, abdominal distension, nausea, vomiting , diarrhea, constipation, melena, hematochezia GENITOURINARY: Absent: dysuria, frequency, urgency, hesitancy, hematuria, flank pain, genital pain MUSCULOSKELETAL: Absent: myalgia, arthralgia, joint swelling, back pain, neck pain SKIN: Absent: rash, itching, pallor NEUROLOGIC: + headache; Absent: focal weakness or paresthesias, dizziness, unsteady gait, seizure, mental status changes, bladder or bowel incontinence PSYCHIATRIC: Absent: anxiety, depression, suicidal or homicidal ideation, hallucinations. PHYSICAL EXAMINATION Vital Signs - 24 hr 02/05/19 22:37 Temperature 98.9 F Pulse Rate 78 Respiratory 20 Rate Blood Pressure 133/63 O2 Sat by Pulse 98 Oximetry (%) GENERAL: Awake, alert, and fully oriented, in no acute distress HEENT: NC/AT, EOMI, PERRLA, NO JVD LUNGS: Breath sounds equal, clear to auscultation bilaterally. No wheezes, and no crackles HEART: Regular rate and rhythm, normal S1 and S2, no murmurs, rubs or gallops ABDOMEN: Soft, nontender, normoactive bowel sounds. No guarding, no rebound. No masses EXTREMITIES: Normal range of motion, no edema. No clubbing or cyanosis NEUROLOGICAL: Cranial nerves II through XII grossly intact. Normal speech, normal gait SKIN: Warm, Dry Laboratory Results - last 24 hr 02/06/19 02/06/19 02/06/19 01:05 01:05 01:05 WBC 5.1 RBC 4.62 Hgb 14.2 Hct 41.2 D MCV 89.3 MCH 30.8 D MCHC 34.5 RDW 15.2 D Plt Count 139 MPV 8.9 D Absolute Neuts (auto) 2.7 Neutrophils % 53.6 D Lymphocytes % 28.5 D Monocytes % 14.6 H D Eosinophils % 2.8 Basophils % 0.5 Nucleated RBC % 0 PT with INR 12.70 INR 1.08 Sodium 140 Potassium 3.8 Chloride 105 Carbon Dioxide 28 Anion Gap 7 L BUN 13.4 Creatinine 0.8 Est GFR (CKD-EPI)AfAm 107.89 Est GFR (CKD-EPI)NonAf 93.09 Random Glucose 132 H Calcium 8.8 Total Bilirubin 2.2 H AST 627 H ALT 844 H Alkaline Phosphatase 212 H Total Protein 7.0 Albumin 3.2 L Urine Color Urine Appearance Urine pH Ur Specific [place] Urine Protein Urine Glucose (UA) Urine Ketones Urine Blood Urine Nitrite Urine Bilirubin Urine Urobilinogen Ur Leukocyte Esterase 02/06/19 01:05 WBC RBC Hgb Hct MCV MCH MCHC RDW Plt Count MPV Absolute Neuts (auto) Neutrophils % Lymphocytes % Monocytes % Eosinophils % Basophils % Nucleated RBC % PT with INR INR Sodium Potassium Chloride Carbon Dioxide Anion Gap BUN Creatinine Est GFR (CKD-EPI)AfAm Est GFR (CKD-EPI)NonAf Random Glucose Calcium Total Bilirubin AST ALT Alkaline Phosphatase Total Protein Albumin Urine Color Dk yellow Urine Appearance Clear Urine pH 7.5 D Ur Specific [place] 1.015 Urine Protein Negative Urine Glucose (UA) Negative Urine Ketones Negative Urine Blood Negative Urine Nitrite Negative Urine Bilirubin Negative Urine Urobilinogen 1.0 Ur Leukocyte Esterase Negative ASSESSMENT/PLAN: 68 year old male with PMH of hypothyroidism, HTN,HLD and DM, arrived to ED with an intermittent headache in the frontal portion of his head since this morning. Patient states taking tylenol which did not provide relief. Patient two similar episodes of headache this week ; however after tylenol it subsided. #Elevated LFTs and elevated Tbili and elevated alk phos - repeat LFTs - follow up direct and indirect bili - follow up Dr. Chavez - follow up Abd US - consider CT abd - d/c zocor - avoid taking tylenol # Headache CT Head: No acute intracranial hemorrhage mass effect or midline shift. Mild nonspecific periventricular predominant low density throughout the deep white matter is most likely due to mild small vessel ischemic white matter disease.Moderate mineralization of the bilateral basal ganglia. Mild sinusitis CT sinsus: Mild sinusitis; Mild degenerative joint disease of the atlantodens joint. Chronic small well corticated degenerative osteophyte fracture fragment near the tip of the dens. Moderate mineralization of the bilateral basal ganglia. - monitor for acute episode # HTN - Continue with Norvasc - Continue with Lisinopril #HLD - d/c zocor - follow lipids profile Hypothyrodism - Continue with synthroid #DM - continue with Glucophage - monitor FSBS, follow HgA1c Problem List - Problem (1) Elevated bilirubin Code(s): R17 - UNSPECIFIED JAUNDICE (2) Elevated LFTs Code(s): R94.5 - ABNORMAL RESULTS OF LIVER FUNCTION STUDIES (3) Headache Code(s): R51 - HEADACHE (4) Diabetes mellitus Code(s): E11.9 - TYPE 2 DIABETES MELLITUS WITHOUT COMPLICATIONS Qualifiers: Diabetes mellitus type: type 2 (5) Hyperlipidemia Code(s): E78.5 - HYPERLIPIDEMIA, UNSPECIFIED Qualifiers: Hyperlipidemia type: pure hypercholesterolemia Qualified Code(s): E78.00 - Pure hypercholesterolemia, unspecified (6) Hypertension Code(s): I10 - ESSENTIAL (PRIMARY) HYPERTENSION Qualifiers: Hypertension type: essential hypertension Qualified Code(s): I10 - Essential (primary) hypertension (7) Hypothyroidism Code(s): E03.9 - HYPOTHYROIDISM, UNSPECIFIED Qualifiers: Hypothyroidism type: unspecified Qualified Code(s): E03.9 - Hypothyroidism , unspecified Visit type - Emergency Visit Emergency Visit: Yes ED Registration Date: 02/06/19 Care time: The patient presented to the Emergency Department on the above date and was hospitalized for further evaluation of their emergent condition. - New Patient This patient is new to me today: Yes Date on this admission: 02/06/19 - Critical Care Critical Care patient: No
[2019-02-06 04:37] VITALS: BMI 24.2
[2019-02-06] MEDS: LEVOTHYROXINE NA 125 MCG TABLET (FP) PO SCH (06:06)
[2019-02-06] MEDS: amLODIPine BESYLATE 2.5 MG TABLET (FP) PO SCH (10:30)
[2019-02-06] MEDS: ASPIRIN 81 MG CHEWABLE TABLETS PO SCH (10:30)
[2019-02-06] MEDS: LISINOPRIL 5 MG TABLET (FP) PO SCH (10:30)
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
--- NOTE | 2019-02-06 15:42 | PN ---
Progress Note, Physician Chief Complaint: Elevated LFTs History of Present Illness: Previous notes and events reviewed awake and alert NAD denies chest pain or SOB denies abdominal pain, nausea, vomiting afebrile, no leukocytosis - Current Medication List Current Medications: Active Medications Amlodipine Besylate (Norvasc -) 2.5 mg PO DAILY [facility] Last Admin: 02/06/19 10:30 Dose: 2.5 mg Aspirin (Asa -) 81 mg PO DAILY [facility] Last Admin: 02/06/19 10:30 Dose: 81 mg Levothyroxine Sodium (Synthroid -) 125 mcg PO DAILY@0700 [facility] Last Admin: 02/06/19 06:06 Dose: 125 mcg Lisinopril (Prinivil) 5 mg PO DAILY [facility] Last Admin: 02/06/19 10:30 Dose: 5 mg Metformin HCl (Glucophage -) 850 mg PO BIDAC [facility] Last Admin: 02/06/19 10:35 Dose: 850 mg - Objective Vital Signs: Vital Signs Temperature 98.2 F 02/06/19 14:00 Pulse Rate 79 02/06/19 14:00 Respiratory Rate 20 02/06/19 14:00 Blood Pressure 109/53 L 02/06/19 14:00 O2 Sat by Pulse Oximetry (%) 95 02/06/19 10:00 Constitutional: Yes: No Distress, Calm Eyes: Yes: Conjunctiva Clear HENT: Yes: Atraumatic Cardiovascular: Yes: Regular Rate and Rhythm Respiratory: Yes: Regular, CTA Bilaterally Gastrointestinal: Yes: Normal Bowel Sounds, Soft Musculoskeletal: Yes: WNL Extremities: Yes: WNL Edema: No Neurological: Yes: Alert, Oriented Psychiatric: Yes: Alert, Oriented Labs: CBC, BMP 02/06/19 01:05 02/06/19 01:05 INR, PTT INR 1.08 (0.83-1.09) 02/06/19 01:05 - ....Imaging Cat Scan: Report Reviewed Ultrasound: Report Reviewed Problem List - Problems (1) Elevated LFTs Assessment/Plan: -GI on board -ID consult -AST 627, ALT 844, Alk phos 212 -US shows normal abdominal US -Hepatitis profile Code(s): R94.5 - ABNORMAL RESULTS OF LIVER FUNCTION STUDIES (2) Hypertension Assessment/Plan: -Amlodipine, Lisinopril -low Na diet Code(s): I10 - ESSENTIAL (PRIMARY) HYPERTENSION Qualifiers: Hypertension type: essential hypertension Qualified Code(s): I10 - Essential (primary) hypertension (3) Hypothyroidism Assessment/Plan: -Levothyroxine Code(s): E03.9 - HYPOTHYROIDISM, UNSPECIFIED Qualifiers: Hypothyroidism type: unspecified Qualified Code(s): E03.9 - Hypothyroidism , unspecified (4) Fever Code(s): R50.9 - FEVER, UNSPECIFIED (5) Headache Assessment/Plan: -Head CT scan unremarkable -Sinus CT scan pending results -pain control Code(s): R51 - HEADACHE Assessment/Plan see problem list dvt ppx
--- NOTE | 2019-02-06 16:50 | PN ---
Progress Note (short form) - Note Progress Note: CONSULT DICTATED
--- NOTE | 2019-02-06 18:52 | CONS ---
DATE OF CONSULTATION: 02/06/2019 HISTORY OF PRESENT ILLNESS: The patient is a 68-year-old male evaluated for possible tick-borne illness. The patient reports being well until approximately one week prior to admission. He developed the onset of fever and headache which resolved. He had a recurrent episode prior to admission. The patient developed the onset of frontal headache, fever and chills. He presented to the hospital where he was evaluated in the emergency room. A CT scan of the head was performed and was negative for acute infiltrate. It showed evidence of chronic sinusitis. His admitting blood work showed elevated liver enzymes. Concern was raised about possible tick-related infection, specifically Lyme anaplasma and Babesia. The patient has no focal complaints at the present time. He denies any body ache. No known tick exposure or rash. He denies chest pain, shortness of breath cough or sputum production. No vomiting or diarrhea. No dysuria. He lives in the community. He works in a [employer]. He does not spend time outdoors. No recent travel. No recent hospitalization. PAST MEDICAL HISTORY: Positive for hypothyroidism, hypertension, diabetes mellitus. ALLERGIES: No known drug allergies. MEDICATIONS: Norvasc, aspirin, Synthroid, lisinopril, Zocor, Glucophage. SOCIAL HISTORY: As per HPI. Negative for tobacco. Rare ETOH. REVIEW OF SYSTEMS: Neurologic: No loss of consciousness, seizure or focal weakness. Cardiac: Negative for chest pain or palpitations. Respiratory: Negative for cough or sputum production. Gastrointestinal: Negative for vomiting or diarrhea. Genitourinary: Negative for urinary tract infection. LABORATORY DATA: White count 5.1, 52 neutrophils, 28 lymphocytes, 14 monocytes. Hematocrit 41.2, platelet count 139, BUN 13, creatinine 0.8. Urinalysis negative. Liver enzymes: Total bilirubin 2.2, alkaline phosphatase 212, AST 627, ALT 844. A chest x-ray shows an elevated right bob-diaphragm. No infiltrate. Ultrasound of the liver is negative. PHYSICAL EXAMINATION: General: He is awake and alert. He does not appear to be acutely toxic. Vital Signs: Temperature 98.0, pulse 77 and regular, blood pressure 139/75, respiratory rate 18 per minute. HEENT:: Sclerae anicteric. Oropharynx negative. Heart: Heart sounds S1, S2. Lungs: Clear bilaterally. Abdomen: Soft and nontender. No right upper quadrant tenderness. No mass, rebound or rigidity. Extremities: Negative for edema. IMPRESSION: Fever, headache, elevated liver enzymes. PLAN: 1. Rule out tick-related illness. Despite lack of exposure history, we will obtain serologies including Lyme titer, anaplasma PCR, peripheral smear for Babesia, Ehrlichia titers. 2. Empiric antibiotic coverage with doxycycline 100 mg IV piggyback every 12 hours. 3. Will assess clinical response and await serologies. Thank you for the kind referral. BJ DIMAS M.D. [id number]
[2019-02-06] MEDS ORDERED: INSULIN (NOVOLOG) ASPART 100 UNITS/ML 10ML VIAL ONE (21:15)
[2019-02-06] MEDS: DOXYCYCLINE INJECTION 100 MG in DEXTROSE 5%-WATER - 100 ML IVPB SCH (21:54)
[2019-02-07] MEDS: LEVOTHYROXINE NA 125 MCG TABLET (FP) PO SCH (06:20)
[2019-02-07 08:50] LABS: HEMATOCRIT 40.4 % (35.4-49); HEMOGLOBIN 13.7 GM/dL (11.7-16.9); MCH 30.5 pg (25.7-33.7); MCHC 33.9 g/dl (32.0-35.9); MEAN PLT VOLUME 9.3 fl (7.5-11.1); PLATELET COUNT 139 K/MM3 (134-434); RBC 4.49 M/mm3 (4.00-5.60); RDW 15.4 % (11.9-15.9); WHITE BLOOD COUNT 4.1 K/mm3 (4.0-10.0)
[2019-02-07 09:10] LABS: CHOLESTEROL 181 mg/dL (50-200); HDL CHOLESTEROL 46 mg/dL (40-60); TRIGLYCERIDES 115 mg/dL (0-150)
[2019-02-07 09:11] LABS: ALBUMIN 2.9 g/dl (3.4-5.0); BILIRUBIN,TOTAL 2.4 mg/dL (0.2-1); BLOOD UREA NITROGEN 12.8 mg/dL (7-18); CALCIUM 8.7 mg/dL (8.5-10.1); CREATININE 0.8 mg/dL (0.55-1.3); POTASSIUM 3.7 mmol/L (3.5-5.1); TOT PROT 6.6 g/dl (6.4-8.2)
[2019-02-07] MEDS: DOXYCYCLINE INJECTION 100 MG in DEXTROSE 5%-WATER - 100 ML IVPB SCH ×2 (09:11→21:28)
[2019-02-07] MEDS: LISINOPRIL 5 MG TABLET (FP) PO SCH (09:12)
[2019-02-07] MEDS: amLODIPine BESYLATE 2.5 MG TABLET (FP) PO SCH (09:12)
[2019-02-07] MEDS: ASPIRIN 81 MG CHEWABLE TABLETS PO SCH (09:12)
[2019-02-07 09:18] LABS: BILIRUBIN,DIRECT 1.8 mg/dL (0.0-0.2)
--- NOTE | 2019-02-07 13:23 | PN ---
Progress Note, Physician Chief Complaint: Elevated LFTs History of Present Illness: Previous notes and events reviewed awake and alert NAD denies chest pain denies abdominal pain, nausea, vomiting afebrile no leukocytosis - Current Medication List Current Medications: Active Medications Amlodipine Besylate (Norvasc -) 2.5 mg PO DAILY [facility] Last Admin: 02/07/19 09:12 Dose: 2.5 mg Aspirin (Asa -) 81 mg PO DAILY [facility] Last Admin: 02/07/19 09:12 Dose: 81 mg Doxycycline Hyclate 100 mg/ (Dextrose) 100 mls @ 100 mls/hr IVPB BID [facility] Last Admin: 02/07/19 09:11 Dose: 100 mls/hr Levothyroxine Sodium (Synthroid -) 125 mcg PO DAILY@0700 [facility] Last Admin: 02/07/19 06:20 Dose: 125 mcg Lisinopril (Prinivil) 5 mg PO DAILY [facility] Last Admin: 02/07/19 09:12 Dose: 5 mg Metformin HCl (Glucophage -) 850 mg PO BIDAC [facility] Last Admin: 02/07/19 06:19 Dose: 850 mg - Objective Vital Signs: Vital Signs Temperature 98.9 F 02/07/19 10:00 Pulse Rate 64 02/07/19 10:00 Respiratory Rate 18 02/07/19 10:00 Blood Pressure 150/70 02/07/19 10:00 O2 Sat by Pulse Oximetry (%) 95 02/07/19 10:00 Constitutional: Yes: No Distress, Calm Eyes: Yes: Conjunctiva Clear HENT: Yes: Atraumatic Cardiovascular: Yes: Regular Rate and Rhythm Respiratory: Yes: Regular, CTA Bilaterally Gastrointestinal: Yes: Normal Bowel Sounds, Soft Musculoskeletal: Yes: WNL Extremities: Yes: WNL Edema: No Neurological: Yes: Alert, Oriented Psychiatric: Yes: Alert, Oriented Labs: CBC, BMP 02/07/19 07:20 02/07/19 07:20 INR, PTT INR 1.08 (0.83-1.09) 02/06/19 01:05 Microbiology 02/06/19 18:05 Blood - Peripheral Venous Blood Parasites Smear - Final 02/06/19 01:05 Urine - Urine Clean Catch Urine Culture - Final NO GROWTH OBTAINED Problem List - Problems (1) Elevated LFTs Assessment/Plan: -GI on board -ID consult -AST 698, ALT 967, Alk phos 219 -US shows normal abdominal US -Hepatitis profile pending Code(s): R94.5 - ABNORMAL RESULTS OF LIVER FUNCTION STUDIES (2) Hypertension Assessment/Plan: -Amlodipine, Lisinopril -low Na diet Code(s): I10 - ESSENTIAL (PRIMARY) HYPERTENSION Qualifiers: Hypertension type: essential hypertension Qualified Code(s): I10 - Essential (primary) hypertension (3) Hypothyroidism Assessment/Plan: -Levothyroxine Code(s): E03.9 - HYPOTHYROIDISM, UNSPECIFIED Qualifiers: Hypothyroidism type: unspecified Qualified Code(s): E03.9 - Hypothyroidism , unspecified (4) Fever Assessment/Plan: -afebrile -tylenol prn for temp >100F -ID on board -Doxycycline -blood parasite smear neg -BC and UC neg -pending lyme titer, anaplasma PCR, West Nile results -contact precautions Code(s): R50.9 - FEVER, UNSPECIFIED (5) Headache Assessment/Plan: -Head CT scan unremarkable -Sinus CT scan pending results -pain control Code(s): R51 - HEADACHE Assessment/Plan see problem list dvt ppx
--- NOTE | 2019-02-07 14:23 | PN ---
Progress Note, Physician History of Present Illness: AWAKE, ALERT NO COMPLAINTS NO HEADACHE DENIES FEVER/ CHILLS AFEBRILE WBC WNL LFTS REMAIN ELEVATED TICK SEROLOGY PENDING - Current Medication List Current Medications: Active Medications Amlodipine Besylate (Norvasc -) 2.5 mg PO DAILY [facility] Last Admin: 02/07/19 09:12 Dose: 2.5 mg Aspirin (Asa -) 81 mg PO DAILY [facility] Last Admin: 02/07/19 09:12 Dose: 81 mg Doxycycline Hyclate 100 mg/ (Dextrose) 100 mls @ 100 mls/hr IVPB BID [facility] Last Admin: 02/07/19 09:11 Dose: 100 mls/hr Levothyroxine Sodium (Synthroid -) 125 mcg PO DAILY@0700 [facility] Last Admin: 02/07/19 06:20 Dose: 125 mcg Lisinopril (Prinivil) 5 mg PO DAILY [facility] Last Admin: 02/07/19 09:12 Dose: 5 mg Metformin HCl (Glucophage -) 850 mg PO BIDAC [facility] Last Admin: 02/07/19 06:19 Dose: 850 mg - Objective Vital Signs: Vital Signs Temperature 98.9 F 02/07/19 10:00 Pulse Rate 64 02/07/19 10:00 Respiratory Rate 18 02/07/19 10:00 Blood Pressure 150/70 02/07/19 10:00 O2 Sat by Pulse Oximetry (%) 95 02/07/19 10:00 Constitutional: Yes: No Distress Eyes: Yes: Conjunctiva Clear Cardiovascular: Yes: Regular Rate and Rhythm, S1, S2 Respiratory: Yes: CTA Bilaterally Gastrointestinal: Yes: Normal Bowel Sounds, Soft. No: Tenderness Edema: No Labs: CBC, BMP 02/07/19 07:20 02/07/19 07:20 INR, PTT INR 1.08 (0.83-1.09) 02/06/19 01:05 Assessment/Plan FEVER/ HEADACHE RESOLVED R/O TICK-RELATED ILLNESS ELEVATED LFTS AWAIT SEROLOGIES CONTINUE DOXYCYCLINE MAY SUBSTITUTE PO DOXY TO COMPLETE 14D COURSE
--- NOTE | 2019-02-07 15:14 | PN.GI ---
GI Progress Note Subjective: GI NOte ( covering the [facility] GI service): NO abdominal pain. NO KIRKPATRICK. NO fever but LFTs are still rising - Objective Vital Signs: Vital Signs Temperature 98.9 F 02/07/19 10:00 Pulse Rate 64 02/07/19 10:00 Respiratory Rate 18 02/07/19 10:00 Blood Pressure 150/70 02/07/19 10:00 O2 Sat by Pulse Oximetry (%) 95 02/07/19 10:00 Laboratory Tests 02/06/19 02/06/19 02/07/19 01:05 01:05 07:20 WBC 5.1 4.1 Iron Saturation Ferritin Total Bilirubin 2.2 H Direct Bilirubin AST 627 H ALT 844 H Alkaline Phosphatase 212 H 02/07/19 02/07/19 02/07/19 07:20 07:20 07:20 WBC Iron Saturation 22 Ferritin 458.0 H Total Bilirubin 2.4 H Direct Bilirubin 1.8 H AST 698 H ALT 967 H Alkaline Phosphatase 219 H Constitutional: Calm ...Auscultate: Yes: Normoactive Bowel Sounds ...Palpate: Yes: Soft, Other (nontender) Labs: CBC, BMP 02/07/19 07:20 02/07/19 07:20 INR, PTT INR 1.08 (0.83-1.09) 02/06/19 01:05 Assessment/Plan Impression: - Reactive hepatopathy to an infectious illness no drug identified that would cause DILI ( pre doxycycline) Iron saturation and ferritin levels exclude hemachromatosis Plan: -- Follow LFTs -- Await infectious etiology studies -- Doxycycline started. Discussed with Dr Rogers Problem List - Problems (1) Elevated LFTs Code(s): R94.5 - ABNORMAL RESULTS OF LIVER FUNCTION STUDIES (2) Fever Code(s): R50.9 - FEVER, UNSPECIFIED (3) Loss of smell Code(s): R43.0 - ANOSMIA (4) Weight loss Code(s): R63.4 - ABNORMAL WEIGHT LOSS (5) Elevated bilirubin Code(s): R17 - UNSPECIFIED JAUNDICE (6) Headache Code(s): R51 - HEADACHE (7) Diabetes mellitus Code(s): E11.9 - TYPE 2 DIABETES MELLITUS WITHOUT COMPLICATIONS Qualifiers: Diabetes mellitus type: type 2 (8) Hyperlipidemia Code(s): E78.5 - HYPERLIPIDEMIA, UNSPECIFIED Qualifiers: Hyperlipidemia type: pure hypercholesterolemia Qualified Code(s): E78.00 - Pure hypercholesterolemia, unspecified (9) Hypertension Code(s): I10 - ESSENTIAL (PRIMARY) HYPERTENSION Qualifiers: Hypertension type: essential hypertension Qualified Code(s): I10 - Essential (primary) hypertension (10) Hypothyroidism Code(s): E03.9 - HYPOTHYROIDISM, UNSPECIFIED Qualifiers: Hypothyroidism type: unspecified Qualified Code(s): E03.9 - Hypothyroidism , unspecified
[2019-02-08] MEDS: LEVOTHYROXINE NA 125 MCG TABLET (FP) PO SCH (06:04)
[2019-02-08 07:37] LABS: HEMATOCRIT 41.9 % (35.4-49); HEMOGLOBIN 14.4 GM/dL (11.7-16.9); MCH 30.8 pg (25.7-33.7); MCHC 34.5 g/dl (32.0-35.9); MEAN CELL VOLUME 89.4 fl (80-96); MEAN PLT VOLUME 9.6 fl (7.5-11.1); PLATELET COUNT 144 K/MM3 (134-434); RBC 4.68 M/mm3 (4.00-5.60); RDW 15.1 % (11.9-15.9); WHITE BLOOD COUNT 5.1 K/mm3 (4.0-10.0)
[2019-02-08 07:53] LABS: BLOOD UREA NITROGEN 17.6 mg/dL (7-18); CREATININE 0.8 mg/dL (0.55-1.3)
[2019-02-08] MEDS ORDERED: PT OWN MED DRAWER 7, Y5N ONE (09:29)
[2019-02-08] MEDS: LISINOPRIL 5 MG TABLET (FP) PO SCH (09:42)
[2019-02-08] MEDS: amLODIPine BESYLATE 2.5 MG TABLET (FP) PO SCH (09:42)
[2019-02-08] MEDS: DOXYCYCLINE INJECTION 100 MG in DEXTROSE 5%-WATER - 100 ML IVPB SCH ×2 (09:42→21:28)
[2019-02-08] MEDS: ASPIRIN 81 MG CHEWABLE TABLETS PO SCH (09:42)
--- NOTE | 2019-02-08 12:52 | PN ---
Progress Note (short form) - Note Progress Note: GI follow up NO new events. Patient feels fatigued. Denies abdominal pain. NAD Anicteric No cervical adenopathy Abd soft NT ND, no palpable organomegaly Labs CBC, BMP 02/08/19 06:00 02/08/19 06:00 Hepatic Panel Total Bilirubin 2.0 mg/dL (0.2-1) H 02/08/19 06:00 Direct Bilirubin 1.8 mg/dL (0.0-0.2) H 02/07/19 07:20 AST 857 U/L (15-37) H 02/08/19 06:00 ALT 1106 U/L (13-61) H 02/08/19 06:00 Alkaline Phosphatase 226 U/L (45-117) H 02/08/19 06:00 Albumin 3.0 g/dl (3.4-5.0) L 02/08/19 06:00 Serological w/u pending. Impression: 68M with mixed pattern LFT elevation. No ETOH or DILI. Suspicion for tick borne illness so put on empiric doxycycline. Would also add viral causes such as EBV and CMV to the differential. Recommend Daily LFTs AND COAGS Await serological w/u and will add EBV and CMV serologies Would repeat abdominal ultrasound specifically to assess spleen size (re EBV)
--- NOTE | 2019-02-08 13:25 | PN ---
Progress Note, Physician Chief Complaint: patient seen and examined LFT still rising awaiting serologies - Current Medication List Current Medications: Active Medications Amlodipine Besylate (Norvasc -) 2.5 mg PO DAILY [facility] Last Admin: 02/08/19 09:42 Dose: 2.5 mg Aspirin (Asa -) 81 mg PO DAILY [facility] Last Admin: 02/08/19 09:42 Dose: 81 mg Doxycycline Hyclate 100 mg/ (Dextrose) 100 mls @ 100 mls/hr IVPB BID [facility] Last Admin: 02/08/19 09:42 Dose: 100 mls/hr Levothyroxine Sodium (Synthroid -) 125 mcg PO DAILY@0700 [facility] Last Admin: 02/08/19 06:04 Dose: 125 mcg Lisinopril (Prinivil) 5 mg PO DAILY [facility] Last Admin: 02/08/19 09:42 Dose: 5 mg Metformin HCl (Glucophage -) 850 mg PO BIDAC [facility] Last Admin: 02/08/19 06:04 Dose: 850 mg - Objective Vital Signs: Vital Signs Temperature 97.8 F 02/08/19 08:51 Pulse Rate 77 02/08/19 08:51 Respiratory Rate 20 02/08/19 08:51 Blood Pressure 124/84 02/08/19 08:51 O2 Sat by Pulse Oximetry (%) 98 02/08/19 09:00 Constitutional: Yes: Calm Cardiovascular: Yes: Regular Rate and Rhythm, S1, S2 Respiratory: Yes: CTA Bilaterally Gastrointestinal: Yes: Normal Bowel Sounds, Soft Edema: No Neurological: Yes: Alert, Oriented Labs: CBC, BMP 02/08/19 06:00 02/08/19 06:00 INR, PTT INR 1.08 (0.83-1.09) 02/06/19 01:05 Problem List - Problems (1) Elevated LFTs Assessment/Plan: awaiting serologies Code(s): R94.5 - ABNORMAL RESULTS OF LIVER FUNCTION STUDIES (2) Fever Assessment/Plan: doxycyline Microbiology 02/06/19 18:05 Blood - Peripheral Venous Blood Parasites Smear - Final 02/06/19 01:05 Urine - Urine Clean Catch Urine Culture - Final NO GROWTH OBTAINED 02/06/19 18:12 Blood - Peripheral Venous Blood Culture - Preliminary NO GROWTH OBTAINED AFTER 24 HOURS, INCUBATION TO CONTINUE FOR 4 DAYS. Code(s): R50.9 - FEVER, UNSPECIFIED (3) Hypothyroid Assessment/Plan: tsh synthroid dose Code(s): E03.9 - HYPOTHYROIDISM, UNSPECIFIED (4) Diabetes mellitus Assessment/Plan: metformin Code(s): E11.9 - TYPE 2 DIABETES MELLITUS WITHOUT COMPLICATIONS Qualifiers: Diabetes mellitus type: type 2
[2019-02-08 16:07] LABS: TRANSGLUTAMINASE IGA < 2 U/mL (0-3); TRANSGLUTAMINASE IGG < 2 U/mL (0-5)
--- NOTE | 2019-02-08 16:39 | PN ---
Progress Note (short form) - Note Progress Note: awake and alert no fever no headache one episode fever headache one week ago and again on Friday feels well no travel no mice no pets no insect bites works in a [employer] Vital Signs Period Temp Pulse Resp BP Sys/العراقي Pulse Ox Last 24 Hr 97.4 F-98.1 F 65-77 18-20 123-137/57-84 95-98 cor-rrr lungs clear abd soft,nt ext no edema Laboratory Tests 02/08/19 06:00 Total Bilirubin 2.0 H AST 857 H ALT 1106 H Alkaline Phosphatase 226 H Microbiology 02/06/19 18:12 Blood - Peripheral Venous Blood Culture - Preliminary NO GROWTH OBTAINED AFTER 24 HOURS, INCUBATION TO CONTINUE FOR 4 DAYS. 02/06/19 18:05 Blood - Peripheral Venous Blood Culture - Preliminary NO GROWTH OBTAINED AFTER 24 HOURS, INCUBATION TO CONTINUE FOR 4 DAYS. 02/06/19 18:05 Blood - Peripheral Venous Blood Parasites Smear - Final 02/06/19 01:05 Urine - Urine Clean Catch Urine Culture - Final NO GROWTH OBTAINED a/p abnl LFTS started on doxycycline on 02/06 for tick related illness serologies pending cmv and ebv ordered today will d/c metformin- d//w pmd and GI f/u labs in am hep serologies pending
[2019-02-08 22:07] LABS: HEP B CORE AB, TOT Negative (Negative)
[2019-02-09] MEDS: LEVOTHYROXINE NA 125 MCG TABLET (FP) PO SCH (06:06)
[2019-02-09] MEDS ORDERED: PT OWN MED DRAWER 7, Y5N ONE (09:15)
[2019-02-09 09:22] LABS: BASO % 0.4 % (0-2.0); HEMATOCRIT 39.6 % (35.4-49); HEMOGLOBIN 13.6 GM/dL (11.7-16.9); MCH 30.5 pg (25.7-33.7); MCHC 34.2 g/dl (32.0-35.9); MEAN PLT VOLUME 9.5 fl (7.5-11.1); MONO % 16.5 % (3.8-10.2); NEUT % 39.1 % (42.8-82.8); PLATELET COUNT 157 K/MM3 (134-434); RBC 4.45 M/mm3 (4.00-5.60); RDW 15.3 % (11.9-15.9); WHITE BLOOD COUNT 4.5 K/mm3 (4.0-10.0)
[2019-02-09] MEDS: LISINOPRIL 5 MG TABLET (FP) PO SCH (09:23)
[2019-02-09] MEDS: ASPIRIN 81 MG CHEWABLE TABLETS PO SCH (09:23)
[2019-02-09] MEDS: DOXYCYCLINE INJECTION 100 MG in DEXTROSE 5%-WATER - 100 ML IVPB SCH (09:23)
[2019-02-09] MEDS: amLODIPine BESYLATE 2.5 MG TABLET (FP) PO SCH (09:23)
[2019-02-09 10:01] LABS: GAMMA GLUTAMYL TRANSPEPTIDASE > 800 U/L (5-85)
[2019-02-09 10:17] LABS: BLOOD UREA NITROGEN 14.8 mg/dL (7-18); CALCIUM 8.6 mg/dL (8.5-10.1); CREATININE 0.8 mg/dL (0.55-1.3)
[2019-02-09 11:13] LABS: INR 1.03 (0.83-1.09); PROTHROMBIN TIME (PATIENT) 12.2 SEC (9.7-13.0)
[2019-02-09 11:26] LABS: BILIRUBIN,DIRECT 1.2 mg/dL (0.0-0.2); BILIRUBIN,TOTAL 1.6 mg/dL (0.2-1); TOT PROT 6.7 g/dl (6.4-8.2)
[2019-02-09 14:07] LABS: WEST NILE VIRUS AB SERUM,IGM Negative (Negative)
--- NOTE | 2019-02-09 14:26 | PN ---
Progress Note, Physician Chief Complaint: Elevated LFTs History of Present Illness: Previous notes and events reviewed awake and alert NAD denies chest pain denies abdominal pain, nausea, vomiting LFTs trending up - Current Medication List Current Medications: Active Medications Amlodipine Besylate (Norvasc -) 2.5 mg PO DAILY [facility] Last Admin: 02/09/19 09:23 Dose: 2.5 mg Aspirin (Asa -) 81 mg PO DAILY [facility] Last Admin: 02/09/19 09:23 Dose: 81 mg Doxycycline Hyclate 100 mg/ (Dextrose) 100 mls @ 100 mls/hr IVPB BID [facility] Last Admin: 02/09/19 09:23 Dose: 100 mls/hr Levothyroxine Sodium (Synthroid -) 125 mcg PO DAILY@0700 [facility] Last Admin: 02/09/19 06:06 Dose: 125 mcg Lisinopril (Prinivil) 5 mg PO DAILY [facility] Last Admin: 02/09/19 09:23 Dose: 5 mg - Objective Vital Signs: Vital Signs Temperature 98 F 02/09/19 10:00 Pulse Rate 73 02/09/19 10:00 Respiratory Rate 20 02/09/19 10:00 Blood Pressure 146/76 02/09/19 10:00 O2 Sat by Pulse Oximetry (%) 97 02/09/19 09:00 Constitutional: Yes: No Distress, Calm Eyes: Yes: Conjunctiva Clear HENT: Yes: Atraumatic Cardiovascular: Yes: Regular Rate and Rhythm Respiratory: Yes: Regular, CTA Bilaterally Gastrointestinal: Yes: Normal Bowel Sounds, Soft Musculoskeletal: Yes: WNL Extremities: Yes: WNL Edema: No Neurological: Yes: Alert, Oriented Psychiatric: Yes: Alert, Oriented Labs: CBC, BMP 02/09/19 07:25 02/09/19 07:25 INR, PTT INR 1.03 (0.83-1.09) 02/09/19 07:25 Microbiology 02/06/19 18:12 Blood - Peripheral Venous Blood Culture - Preliminary NO GROWTH OBTAINED AFTER 48 HOURS, INCUBATION TO CONTINUE FOR 3 DAYS. 02/06/19 18:05 Blood - Peripheral Venous Blood Culture - Preliminary NO GROWTH OBTAINED AFTER 48 HOURS, INCUBATION TO CONTINUE FOR 3 DAYS. 02/06/19 18:05 Blood - Peripheral Venous Blood Parasites Smear - Final 02/06/19 01:05 Urine - Urine Clean Catch Urine Culture - Final NO GROWTH OBTAINED Problem List - Problems (1) Elevated LFTs Code(s): R94.5 - ABNORMAL RESULTS OF LIVER FUNCTION STUDIES (2) Hypertension Code(s): I10 - ESSENTIAL (PRIMARY) HYPERTENSION Qualifiers: Hypertension type: essential hypertension Qualified Code(s): I10 - Essential (primary) hypertension (3) Hypothyroidism Code(s): E03.9 - HYPOTHYROIDISM, UNSPECIFIED Qualifiers: Hypothyroidism type: unspecified Qualified Code(s): E03.9 - Hypothyroidism , unspecified (4) Fever Code(s): R50.9 - FEVER, UNSPECIFIED (5) Headache Code(s): R51 - HEADACHE
--- NOTE | 2019-02-09 15:31 | PN.GI ---
GI Progress Note Subjective: States overall feeling well Denies any sick contacts, travel Denies any memorable insect bites and denies any contacts with similar complaints His mother had a liver problem but he was uncertain regarding the etiology of it. Smooth muscle antibody + / TANA - - Objective Vital Signs: Vital Signs Temperature 98.1 F 02/09/19 14:49 Pulse Rate 66 02/09/19 14:49 Respiratory Rate 18 02/09/19 14:49 Blood Pressure 112/71 02/09/19 14:49 O2 Sat by Pulse Oximetry (%) 97 02/09/19 09:00 Constitutional: Calm Eyes: No: Sclera Icterus Cardiovascular: Yes: Regular Rate and Rhythm Respiratory: Yes: CTA Bilaterally Gastrointestinal Inspection: No: Distention ...Auscultate: Yes: Normoactive Bowel Sounds ...Palpate: Yes: Soft. No: Hepatomegaly, Splenomegaly, Tenderness Edema: No (No LE edema) Neurological: Yes: Alert Labs: CBC, BMP 02/09/19 07:25 02/09/19 07:25 INR, PTT INR 1.03 (0.83-1.09) 02/09/19 07:25 Laboratory Tests 02/06/19 02/07/19 02/09/19 18:05 07:20 07:25 A. phagocytophilum DNA Pending A.phagocytophil DNA PCR Pending Babesia microti IgG Ab Pending Babesia microti IgM Ab Pending Lyme Screen IgG & IgM <0.91 Lyme Disease (Early) Ab <0.80 CMV IgG Ab Pending CMV IgM Ab Pending CMV DNA Qual PCR Pending E.chaffeensis DNA (PCR) Pending West Nile Virus IgG Ab Positive H West Nile Virus IgM Ab Negative EBV EA IgG Ab Interp Pending EBV Nuclear Antigen Pending EBV DNA (PCR) Pending Hep A IgM Ab Confirm Negative Hepatitis A Ab Total Positive H Hep Bs Antigen Negative Hep Bs Antibody Non reactive Hep B Core Total Ab Negative Hep B Core IgM Ab Negative Hepatitis Be Antibody Negative Hepatitis Be Antigen Negative Hep C Ab Diagnostic <0.1 Leptospira IgM Antibody Pending Problem List - Problems (1) Elevated LFTs Assessment/Plan: Predominantly hepatocellular liver dysfunction: Hepatitis serologies unrevealing CMV serologies / EBV PCR pending Smooth Muscle Ab + and patient with autoimmune thyroid disease: AIH still needs to be considered in differential If continued rise in transaminases, patient will likely need liver biopsy and evaluation at liver center should be considered. No evidence of liver failure - Avoid hepatotoxic agents - Monitor LFTs Code(s): R94.5 - ABNORMAL RESULTS OF LIVER FUNCTION STUDIES
[2019-02-09 18:17] LABS: BABESIA MICROTI ANTIBODY IGG <1:10 (Neg:<1:10); BABESIA MICROTI ANTIBODY IGM <1:10 (Neg:<1:10)
[2019-02-09] MEDS ORDERED: DEXTROSE 5%-NORMAL SALINE 1,000 ML IV SCH (19:15)
--- NOTE | 2019-02-09 19:16 | PN ---
Progress Note, Physician Chief Complaint: Elevated LFTs History of Present Illness: Previous notes and events reviewed awake and alert NAD denies chest pain denies abdominal pain, nausea, vomiting LFTs trending up - Current Medication List Current Medications: Active Medications Amlodipine Besylate (Norvasc -) 2.5 mg PO DAILY [facility] Last Admin: 02/09/19 09:23 Dose: 2.5 mg Aspirin (Asa -) 81 mg PO DAILY [facility] Last Admin: 02/09/19 09:23 Dose: 81 mg Doxycycline Hyclate 100 mg/ (Dextrose) 100 mls @ 100 mls/hr IVPB BID [facility] Last Admin: 02/09/19 09:23 Dose: 100 mls/hr Dextrose/Sodium Chloride (D5-Ns -) 1,000 mls @ 42 mls/hr IV ASDIR [facility] Insulin Aspart (Novolog Vial Sliding Scale -) 1 vial SQ ACHS [facility]; Protocol Levothyroxine Sodium (Synthroid -) 125 mcg PO DAILY@0700 [facility] Last Admin: 02/09/19 06:06 Dose: 125 mcg Lisinopril (Prinivil) 5 mg PO DAILY [facility] Last Admin: 02/09/19 09:23 Dose: 5 mg - Objective Vital Signs: Vital Signs Temperature 98.1 F 02/09/19 14:49 Pulse Rate 66 02/09/19 14:49 Respiratory Rate 18 02/09/19 14:49 Blood Pressure 112/71 02/09/19 14:49 O2 Sat by Pulse Oximetry (%) 97 02/09/19 09:00 Constitutional: Yes: No Distress, Calm Eyes: Yes: Conjunctiva Clear HENT: Yes: Atraumatic Cardiovascular: Yes: Regular Rate and Rhythm Respiratory: Yes: Regular, CTA Bilaterally Gastrointestinal: Yes: Normal Bowel Sounds, Soft Musculoskeletal: Yes: WNL Extremities: Yes: WNL Edema: No Neurological: Yes: Alert, Oriented Psychiatric: Yes: Alert, Oriented Labs: CBC, BMP 02/09/19 07:25 02/09/19 07:25 INR, PTT INR 1.03 (0.83-1.09) 02/09/19 07:25 Microbiology 02/06/19 18:12 Blood - Peripheral Venous Blood Culture - Preliminary NO GROWTH OBTAINED AFTER 72 HOURS, INCUBATION TO CONTINUE FOR 2 DAYS. 02/06/19 18:05 Blood - Peripheral Venous Blood Culture - Preliminary NO GROWTH OBTAINED AFTER 72 HOURS, INCUBATION TO CONTINUE FOR 2 DAYS. 02/06/19 18:05 Blood - Peripheral Venous Blood Parasites Smear - Final 02/06/19 01:05 Urine - Urine Clean Catch Urine Culture - Final NO GROWTH OBTAINED - ....Imaging Ultrasound: Report Reviewed Problem List - Problems (1) Elevated LFTs Assessment/Plan: -GI on board -ID on board -AST 883, ALT 1178, Alk phos 195 -GGT >800 -EBV, CMV results pending -lyme titers reviewed -West Nile Virus IgG AB positive -monitor LFTs and Coags -Spleen US shows negative, no definite sonographic abnormality -US shows normal abdominal US -Hepatitis profile reviewed -if LFTs continue to rise possible transfer to tertiary center Code(s): R94.5 - ABNORMAL RESULTS OF LIVER FUNCTION STUDIES (2) Hypertension Assessment/Plan: -Amlodipine, Lisinopril -low Na diet Code(s): I10 - ESSENTIAL (PRIMARY) HYPERTENSION Qualifiers: Hypertension type: essential hypertension Qualified Code(s): I10 - Essential (primary) hypertension (3) Hypothyroidism Assessment/Plan: -Levothyroxine Code(s): E03.9 - HYPOTHYROIDISM, UNSPECIFIED Qualifiers: Hypothyroidism type: unspecified Qualified Code(s): E03.9 - Hypothyroidism , unspecified (4) Fever Assessment/Plan: -afebrile -tylenol prn for temp >100F -ID on board -Doxycycline -blood parasite smear neg -BC and UC neg -EBV, CMV results pending -lyme titers reviewed -West Nile Virus IgG AB positive Code(s): R50.9 - FEVER, UNSPECIFIED (5) Headache Assessment/Plan: -Head CT scan unremarkable -Sinus CT scan no evidence of acute sinusitis, otomastoiditis -pain control Code(s): R51 - HEADACHE Assessment/Plan see problem list dvt ppx
[2019-02-09] MEDS: INSULIN SLIDING SCALE (NOVOLOG) 1 VIAL SQ SCH (21:39)
[2019-02-10] MEDS: INSULIN SLIDING SCALE (NOVOLOG) 1 VIAL SQ SCH ×4 (06:02→22:00)
[2019-02-10 06:07] LABS: ALPHA-1-ANTITRYPSIN 158 mg/dL (90-200); CMV IgM < 30.0 AU/mL (0.0-29.9)
[2019-02-10] MEDS: LEVOTHYROXINE NA 125 MCG TABLET (FP) PO SCH (06:09)
[2019-02-10] MEDS: LISINOPRIL 5 MG TABLET (FP) PO SCH ×2 (09:00→13:40)
[2019-02-10] MEDS: amLODIPine BESYLATE 2.5 MG TABLET (FP) PO SCH ×2 (09:00→13:40)
[2019-02-10] MEDS: ASPIRIN 81 MG CHEWABLE TABLETS PO SCH (09:00)
[2019-02-10 09:01] LABS: INR 0.98 (0.83-1.09); PROTHROMBIN TIME (PATIENT) 11.6 SEC (9.7-13.0)
[2019-02-10 09:04] LABS: ACTIVATED PTT 42.7 SECONDS (25.2-36.5)
[2019-02-10 09:23] LABS: ALBUMIN 2.9 g/dl (3.4-5.0); BILIRUBIN,TOTAL 1.4 mg/dL (0.2-1); BLOOD UREA NITROGEN 14.3 mg/dL (7-18); CREATININE 0.7 mg/dL (0.55-1.3); POTASSIUM 4.3 mmol/L (3.5-5.1); TOT PROT 6.8 g/dl (6.4-8.2)
[2019-02-10 09:26] LABS: HEMATOCRIT 40.5 % (35.4-49); HEMOGLOBIN 13.8 GM/dL (11.7-16.9); MCH 30.2 pg (25.7-33.7); MEAN CELL VOLUME 88.9 fl (80-96); MEAN PLT VOLUME 9.4 fl (7.5-11.1); PLATELET COUNT 157 K/MM3 (134-434); RBC 4.55 M/mm3 (4.00-5.60); RDW 15.4 % (11.9-15.9); WHITE BLOOD COUNT 3.8 K/mm3 (4.0-10.0)
--- NOTE | 2019-02-10 10:26 | PN.GI ---
GI Progress Note Subjective: Pt seen/examined at bedside, pt feeling better asking to eat. Denies abd pain, n /v, fever/chills. No jaundice or pruritus. Denies family h/o liver disease - states clarified with family and denies mother having liver disease - Objective Vital Signs: Vital Signs Temperature 98.1 F 02/10/19 06:00 Pulse Rate 61 02/10/19 06:00 Respiratory Rate 20 02/10/19 06:00 Blood Pressure 129/51 L 02/10/19 06:00 O2 Sat by Pulse Oximetry (%) 98 02/09/19 21:00 Constitutional: Well Nourished, No Distress, Calm Cardiovascular: Yes: WNL, Regular Rate and Rhythm Respiratory: Yes: WNL, Regular, CTA Bilaterally Gastrointestinal Inspection: Yes: WNL ...Palpate: Yes: Other (Abd soft, nt, nd No appreciable organomegaly) Labs: CBC, BMP 02/10/19 07:33 02/10/19 07:33 INR, PTT INR 0.98 (0.83-1.09) 02/10/19 07:33 Problem List - Problems (1) Elevated LFTs Assessment/Plan: 68yo male h/o hypothyroidism presenting initially with fever and headaches with rising LFTs of unclear exact etiology predominantly hepatocellular pattern. Clinically doing well. No obvious acute infectious etiology identified. No obvious etoh or drug precipitant. Cannot exclude underlying autoimmune process. No clinical or biochemical features to suggest impending liver failure. -In view of continue transaminase elevation would recommend proceed with liver biopsy for further more definitive diagnosis. Called radiology, left for Dr. Hui. -NPO for now -Check liver/kidney microsomal ab for further evaluation of possible AI hepatitis -Continue to avoid nonessential hepatotoxic medications -Continue to monitor LFTs and coags daily -Consider ID consult considering pts initial presentation Discussed with medicine attending Code(s): R94.5 - ABNORMAL RESULTS OF LIVER FUNCTION STUDIES
--- NOTE | 2019-02-10 13:05 | PN ---
Progress Note (short form) - Note Progress Note: awake and alert no fever no headache one episode fever headache one week ago and again on Friday feels well Vital Signs Period Temp Pulse Resp BP Sys/العراقي Pulse Ox Last 24 Hr 97.9 F-98.2 F 61-69 16-20 112-132/51-77 98 cor-rrr lungs clear abd soft,nt ext no edema CBC, BMP 02/10/19 07:33 02/10/19 07:33 Laboratory Tests 02/07/19 02/08/19 02/09/19 07:20 06:00 07:25 Total Bilirubin 2.4 H 2.0 H AST 698 H 857 H 883 H ALT 967 H 1106 H 1178 H Alkaline Phosphatase 219 H 226 H 195 H 02/10/19 07:33 Total Bilirubin AST 894 H ALT 1217 H Alkaline Phosphatase 216 H cmv igg positive, pcr pending ebv serology pending hep seology negative a/p abnl LFTS started on doxycycline on 02/06 for tick related illness-will d/c given no fever since admission and no thrombocytopenia- not c/w tick illness serologies pending-lyme and babesia negative (no hemolysis to suggest babesia), anaplasma and ehrlichia pcr still pending cmv and ebv ordered today d/c all nonessential meds agree with liver biopsy f/u labs in am
--- NOTE | 2019-02-10 14:38 | PN ---
Progress Note, Physician Chief Complaint: Elevated LFTs History of Present Illness: Previous notes and events reviewed awake and alert NAD denies chest pain denies abdominal pain, nausea, vomiting LFTs continue to show uptrend will need liver biopsy - Current Medication List Current Medications: Active Medications Amlodipine Besylate (Norvasc -) 2.5 mg PO DAILY [facility] Last Admin: 02/10/19 13:40 Dose: 2.5 mg Aspirin (Asa -) 81 mg PO DAILY [facility] Last Admin: 02/10/19 09:00 Dose: Not Given Insulin Aspart (Novolog Vial Sliding Scale -) 1 vial SQ ACHS [facility]; Protocol Last Admin: 02/10/19 12:04 Dose: Not Given Levothyroxine Sodium (Synthroid -) 125 mcg PO DAILY@0700 [facility] Last Admin: 02/10/19 06:09 Dose: 125 mcg Lisinopril (Prinivil) 5 mg PO DAILY [facility] Last Admin: 02/10/19 13:40 Dose: 5 mg - Objective Vital Signs: Vital Signs Temperature 98.1 F 02/10/19 06:00 Pulse Rate 61 02/10/19 06:00 Respiratory Rate 20 02/10/19 06:00 Blood Pressure 129/51 L 02/10/19 06:00 O2 Sat by Pulse Oximetry (%) 98 02/09/19 21:00 Constitutional: Yes: No Distress, Calm Eyes: Yes: Conjunctiva Clear HENT: Yes: Atraumatic Cardiovascular: Yes: Regular Rate and Rhythm Respiratory: Yes: Regular, CTA Bilaterally Gastrointestinal: Yes: Normal Bowel Sounds, Soft Musculoskeletal: Yes: WNL Extremities: Yes: WNL Edema: No Neurological: Yes: Alert, Oriented Psychiatric: Yes: Alert, Oriented Labs: CBC, BMP 02/10/19 07:33 02/10/19 07:33 INR, PTT INR 0.98 (0.83-1.09) 02/10/19 07:33 Microbiology 02/06/19 18:12 Blood - Peripheral Venous Blood Culture - Preliminary NO GROWTH OBTAINED AFTER 72 HOURS, INCUBATION TO CONTINUE FOR 2 DAYS. 02/06/19 18:05 Blood - Peripheral Venous Blood Culture - Preliminary NO GROWTH OBTAINED AFTER 72 HOURS, INCUBATION TO CONTINUE FOR 2 DAYS. 02/06/19 18:05 Blood - Peripheral Venous Blood Parasites Smear - Final 02/06/19 01:05 Urine - Urine Clean Catch Urine Culture - Final NO GROWTH OBTAINED Problem List - Problems (1) Elevated LFTs Assessment/Plan: -GI on board -ID on board -AST 894, ALT 1217, Alk phos 216 -GGT >800 -EBV pending -CMV IgG Ab positive 8.0 -lyme titers reviewed -West Nile Virus IgG AB positive -monitor LFTs and Coags -Spleen US shows negative, no definite sonographic abnormality -US shows normal abdominal US -Hepatitis profile reviewed -patient will need liver biopsy, as per IR will need to hold Aspirin for 5 days- -patient denies hx of [place] or CVA will start holding aspirin from today Code(s): R94.5 - ABNORMAL RESULTS OF LIVER FUNCTION STUDIES (2) Hypertension Assessment/Plan: -Amlodipine, Lisinopril -low Na diet Code(s): I10 - ESSENTIAL (PRIMARY) HYPERTENSION Qualifiers: Hypertension type: essential hypertension Qualified Code(s): I10 - Essential (primary) hypertension (3) Hypothyroidism Assessment/Plan: -Levothyroxine Code(s): E03.9 - HYPOTHYROIDISM, UNSPECIFIED Qualifiers: Hypothyroidism type: unspecified Qualified Code(s): E03.9 - Hypothyroidism , unspecified (4) Fever Assessment/Plan: -afebrile -tylenol prn for temp >100F -ID on board -ABT discontinued -blood parasite smear neg -BC and UC neg -EBV pending -CMV IgG Ab positive 8.0 -lyme titers reviewed -West Nile Virus IgG AB positive Code(s): R50.9 - FEVER, UNSPECIFIED (5) Headache Assessment/Plan: -Head CT scan unremarkable -Sinus CT scan no evidence of acute sinusitis, otomastoiditis -pain control Code(s): R51 - HEADACHE Assessment/Plan see problem list dvt ppx
[2019-02-11] MEDS: INSULIN SLIDING SCALE (NOVOLOG) 1 VIAL SQ SCH ×4 (06:23→21:39)
[2019-02-11] MEDS: LEVOTHYROXINE NA 125 MCG TABLET (FP) PO SCH (06:24)
[2019-02-11 07:23] LABS: HEMATOCRIT 38.5 % (35.4-49); HEMOGLOBIN 13.1 GM/dL (11.7-16.9); MCH 30.4 pg (25.7-33.7); MEAN CELL VOLUME 89.5 fl (80-96); PLATELET COUNT 159 K/MM3 (134-434); RDW 15.2 % (11.9-15.9); WHITE BLOOD COUNT 3.8 K/mm3 (4.0-10.0)
[2019-02-11 07:25] LABS: INR 0.98 (0.83-1.09); PROTHROMBIN TIME (PATIENT) 11.6 SEC (9.7-13.0)
[2019-02-11 08:07] LABS: ALBUMIN 2.8 g/dl (3.4-5.0); BILIRUBIN,TOTAL 1.2 mg/dL (0.2-1); BLOOD UREA NITROGEN 17.2 mg/dL (7-18); CALCIUM 8.8 mg/dL (8.5-10.1); CREATININE 0.8 mg/dL (0.55-1.3); POTASSIUM 4.1 mmol/L (3.5-5.1); TOT PROT 6.5 g/dl (6.4-8.2)
[2019-02-11] MEDS: LISINOPRIL 5 MG TABLET (FP) PO SCH (09:59)
[2019-02-11] MEDS: amLODIPine BESYLATE 2.5 MG TABLET (FP) PO SCH (09:59)
[2019-02-11] MEDS ORDERED: INSULIN (NOVOLOG) ASPART 100 UNITS/ML 10ML VIAL ONE (11:57)
--- NOTE | 2019-02-11 13:53 | PN ---
Progress Note, Physician Chief Complaint: Elevated LFTs History of Present Illness: Previous notes and events reviewed awake and alert NAD denies chest pain denies abdominal pain, nausea, vomiting LFTs elevated will need liver biopsy - Current Medication List Current Medications: Active Medications Amlodipine Besylate (Norvasc -) 2.5 mg PO DAILY [facility] Last Admin: 02/11/19 09:59 Dose: 2.5 mg Aspirin (Asa -) 81 mg PO DAILY [facility] Last Admin: 02/10/19 09:00 Dose: Not Given Insulin Aspart (Novolog Vial Sliding Scale -) 1 vial SQ ACHS [facility]; Protocol Last Admin: 02/11/19 12:06 Dose: 2 units Levothyroxine Sodium (Synthroid -) 125 mcg PO DAILY@0700 [facility] Last Admin: 02/11/19 06:24 Dose: 125 mcg Lisinopril (Prinivil) 5 mg PO DAILY [facility] Last Admin: 02/11/19 09:59 Dose: 5 mg - Objective Vital Signs: Vital Signs Temperature 97.7 F 02/11/19 06:00 Pulse Rate 68 02/11/19 06:00 Respiratory Rate 20 02/10/19 22:00 Blood Pressure 128/65 02/11/19 06:00 O2 Sat by Pulse Oximetry (%) 98 02/10/19 22:00 Constitutional: Yes: No Distress, Calm Eyes: Yes: Conjunctiva Clear HENT: Yes: Atraumatic Cardiovascular: Yes: Regular Rate and Rhythm Respiratory: Yes: Regular, CTA Bilaterally Gastrointestinal: Yes: Normal Bowel Sounds, Soft Musculoskeletal: Yes: WNL Extremities: Yes: WNL Edema: No Neurological: Yes: Alert, Oriented Psychiatric: Yes: Alert, Oriented Labs: CBC, BMP 02/11/19 06:40 02/11/19 06:40 INR, PTT INR 0.98 (0.83-1.09) 02/11/19 06:40 Microbiology 02/06/19 18:12 Blood - Peripheral Venous Blood Culture - Preliminary NO GROWTH OBTAINED AFTER 96 HOURS, INCUBATION TO CONTINUE FOR 1 DAYS. 02/06/19 18:05 Blood - Peripheral Venous Blood Culture - Preliminary NO GROWTH OBTAINED AFTER 96 HOURS, INCUBATION TO CONTINUE FOR 1 DAYS. 02/06/19 18:05 Blood - Peripheral Venous Blood Parasites Smear - Final 02/06/19 01:05 Urine - Urine Clean Catch Urine Culture - Final NO GROWTH OBTAINED Problem List - Problems (1) Elevated LFTs Assessment/Plan: -GI on board -ID on board -AST 837, ALT 1172, Alk phos 215 -GGT >800 -EBV pending -CMV IgG Ab positive 8.0 -lyme titers reviewed -West Nile Virus IgG AB positive -monitor LFTs and Coags -Spleen US shows negative, no definite sonographic abnormality -US shows normal abdominal US -Hepatitis profile reviewed -patient will need liver biopsy, as per IR will need to hold Aspirin for 5 days- -patient denies hx of [place] or CVA will start holding aspirin from today Code(s): R94.5 - ABNORMAL RESULTS OF LIVER FUNCTION STUDIES (2) Hypertension Assessment/Plan: -Amlodipine, Lisinopril -low Na diet Code(s): I10 - ESSENTIAL (PRIMARY) HYPERTENSION Qualifiers: Hypertension type: essential hypertension Qualified Code(s): I10 - Essential (primary) hypertension (3) Hypothyroidism Assessment/Plan: -Levothyroxine Code(s): E03.9 - HYPOTHYROIDISM, UNSPECIFIED Qualifiers: Hypothyroidism type: unspecified Qualified Code(s): E03.9 - Hypothyroidism , unspecified (4) Fever Assessment/Plan: -afebrile -tylenol prn for temp >100F -ID on board -ABT discontinued -blood parasite smear neg -BC and UC neg -EBV pending -CMV IgG Ab positive 8.0 -lyme titers reviewed -West Nile Virus IgG AB positive Code(s): R50.9 - FEVER, UNSPECIFIED (5) Headache Assessment/Plan: -Head CT scan unremarkable -Sinus CT scan no evidence of acute sinusitis, otomastoiditis -pain control Code(s): R51 - HEADACHE Assessment/Plan see problem list dvt ppx
--- NOTE | 2019-02-11 18:51 | PN ---
Progress Note (short form) - Note Progress Note: awake and alert Vital Signs Period Temp Pulse Resp BP Sys/العراقي Pulse Ox Last 24 Hr 97.7 F-98.2 F 43-68 19-20 116-140/65-78 97-98 cor-rrr lungs clear abd soft,nt ext no edema CBC, BMP 02/11/19 06:40 02/11/19 06:40 Microbiology 02/06/19 18:12 Blood - Peripheral Venous Blood Culture - Final NO GROWTH AFTER 5 DAYS INCUBATION 02/06/19 18:05 Blood - Peripheral Venous Blood Culture - Final NO GROWTH AFTER 5 DAYS INCUBATION 02/06/19 18:05 Blood - Peripheral Venous Blood Parasites Smear - Final 02/06/19 01:05 Urine - Urine Clean Catch Urine Culture - Final NO GROWTH OBTAINED Laboratory Tests 02/07/19 02/07/19 02/08/19 07:20 07:20 06:00 Total Bilirubin 2.4 H 2.0 H AST 698 H 857 H ALT 967 H 1106 H Alkaline Phosphatase 219 H 226 H Lyme Screen IgG & IgM <0.91 Lyme Disease (Early) Ab <0.80 02/09/19 02/10/19 02/11/19 07:25 07:33 06:40 Total Bilirubin 1.2 H AST 883 H 894 H 837 H ALT 1178 H 1217 H 1172 H Alkaline Phosphatase 195 H 216 H 215 H Lyme Screen IgG & IgM Lyme Disease (Early) Ab cmv igg positive, pcr pending ebv serology pending hep seology negative a/p abnl LFTS-appear to be trending down serologies pending-lyme and babesia negative (no hemolysis to suggest babesia), anaplasma and ehrlichia pcr still pending cmv and ebv ordered today f/u labs in am
--- NOTE | 2019-02-11 19:07 | PN.GI ---
GI Progress Note Subjective: States feeling well No abdominal pain No fevers noted - Objective Vital Signs: Vital Signs Temperature 97.9 F 02/11/19 14:00 Pulse Rate 62 02/11/19 14:00 Respiratory Rate 19 02/11/19 09:00 Blood Pressure 140/67 02/11/19 14:00 O2 Sat by Pulse Oximetry (%) 97 02/11/19 09:00 Constitutional: Calm Eyes: No: Sclera Icterus Cardiovascular: Yes: Regular Rate and Rhythm Respiratory: Yes: CTA Bilaterally Gastrointestinal Inspection: No: Distention, Scars ...Auscultate: Yes: Normoactive Bowel Sounds ...Palpate: Yes: Soft. No: Hepatomegaly, Splenomegaly, Tenderness Edema: No (No LE edema) Neurological: Yes: Alert Labs: CBC, BMP 02/11/19 06:40 02/11/19 06:40 INR, PTT INR 0.98 (0.83-1.09) 02/11/19 06:40 Hepatic Panel Total Bilirubin 1.2 mg/dL (0.2-1) H 02/11/19 06:40 Direct Bilirubin 1.2 mg/dL (0.0-0.2) H 02/09/19 07:25 AST 837 U/L (15-37) H 02/11/19 06:40 ALT 1172 U/L (13-61) H 02/11/19 06:40 Alkaline Phosphatase 215 U/L (45-117) H 02/11/19 06:40 Albumin 2.8 g/dl (3.4-5.0) L 02/11/19 06:40 Problem List - Problems (1) Elevated LFTs Code(s): R94.5 - ABNORMAL RESULTS OF LIVER FUNCTION STUDIES
[2019-02-12] MEDS: LEVOTHYROXINE NA 125 MCG TABLET (FP) PO SCH (06:22)
[2019-02-12] MEDS: INSULIN SLIDING SCALE (NOVOLOG) 1 VIAL SQ SCH ×4 (06:22→21:56)
[2019-02-12 07:38] LABS: BASO % 0.5 % (0-2.0); EOS % 2.9 % (0-4.5); HEMATOCRIT 39.4 % (35.4-49); HEMOGLOBIN 13.4 GM/dL (11.7-16.9); LYMPH % 45.8 % (8-40); MCH 30.4 pg (25.7-33.7); MCHC 33.9 g/dl (32.0-35.9); MEAN CELL VOLUME 89.7 fl (80-96); MEAN PLT VOLUME 9.1 fl (7.5-11.1); MONO % 13.7 % (3.8-10.2); NEUT % 37.1 % (42.8-82.8); PLATELET COUNT 183 K/MM3 (134-434); RDW 15.4 % (11.9-15.9); WHITE BLOOD COUNT 3.9 K/mm3 (4.0-10.0)
[2019-02-12 07:48] LABS: ALBUMIN 2.8 g/dl (3.4-5.0); BILIRUBIN,TOTAL 1.2 mg/dL (0.2-1); BLOOD UREA NITROGEN 18.6 mg/dL (7-18); CALCIUM 8.6 mg/dL (8.5-10.1); CREATININE 0.8 mg/dL (0.55-1.3); TOT PROT 6.7 g/dl (6.4-8.2)
[2019-02-12] MEDS: LISINOPRIL 5 MG TABLET (FP) PO SCH (10:19)
[2019-02-12] MEDS: amLODIPine BESYLATE 2.5 MG TABLET (FP) PO SCH (10:20)
--- NOTE | 2019-02-12 11:55 | PN ---
Progress Note, Physician Chief Complaint: patient seen and examined no distress awake alert oriented elevated LFT - Current Medication List Current Medications: Active Medications Amlodipine Besylate (Norvasc -) 2.5 mg PO DAILY [facility] Last Admin: 02/12/19 10:20 Dose: 2.5 mg Aspirin (Asa -) 81 mg PO DAILY [facility] Last Admin: 02/10/19 09:00 Dose: Not Given Insulin Aspart (Novolog Vial Sliding Scale -) 1 vial SQ ACHS [facility]; Protocol Last Admin: 02/12/19 06:22 Dose: Not Given Levothyroxine Sodium (Synthroid -) 125 mcg PO DAILY@0700 [facility] Last Admin: 02/12/19 06:22 Dose: 125 mcg Lisinopril (Prinivil) 5 mg PO DAILY [facility] Last Admin: 02/12/19 10:19 Dose: 5 mg - Objective Vital Signs: Vital Signs Temperature 98.0 F 02/12/19 05:00 Pulse Rate 50 L 02/12/19 05:00 Respiratory Rate 18 02/11/19 21:40 Blood Pressure 125/59 L 02/12/19 05:00 O2 Sat by Pulse Oximetry (%) 97 02/11/19 21:00 Constitutional: Yes: Calm Cardiovascular: Yes: Regular Rate and Rhythm, S1, S2 Respiratory: Yes: CTA Bilaterally Gastrointestinal: Yes: Normal Bowel Sounds, Soft Edema: No Labs: CBC, BMP 02/12/19 06:49 02/12/19 06:49 INR, PTT INR 0.98 (0.83-1.09) 02/11/19 06:40 Problem List - Problems (1) Elevated LFTs Assessment/Plan: awaiting serologies CMV IgG and west nile IgG is postive last d ay of aspirin was 02/09 to get liver biopsy by IR Code(s): R94.5 - ABNORMAL RESULTS OF LIVER FUNCTION STUDIES (2) Fever Assessment/Plan: doxycyline stopped Microbiology 02/06/19 18:05 Blood - Peripheral Venous Blood Parasites Smear - Final 02/06/19 01:05 Urine - Urine Clean Catch Urine Culture - Final NO GROWTH OBTAINED 02/06/19 18:12 Blood - Peripheral Venous Blood Culture - Preliminary NO GROWTH OBTAINED AFTER 24 HOURS, INCUBATION TO CONTINUE FOR 4 DAYS. (3) Hypothyroid Assessment/Plan: tsh synthroid dose Code(s): E03.9 - HYPOTHYROIDISM, UNSPECIFIED (4) Diabetes mellitus Assessment/Plan: metformin stopped sliding scale [id number] 7.3 Code(s): E11.9 - TYPE 2 DIABETES MELLITUS WITHOUT COMPLICATIONS Qualifiers: Diabetes mellitus type: type 2
[2019-02-12] MEDS ORDERED: INSULIN (NOVOLOG) ASPART 100 UNITS/ML 10ML VIAL ONE ×2 (11:57→21:35)
--- NOTE | 2019-02-12 12:59 | PN ---
Progress Note (short form) - Note Progress Note: awake and alert no complaints Vital Signs Period Temp Pulse Resp BP Sys/العراقي Pulse Ox Last 24 Hr 97.5 F-98.0 F 50-66 18-19 115-150/59-79 97 cor-rrr llungs clear abd soft,nt ext no edema Laboratory Tests 02/07/19 02/07/19 02/08/19 07:20 07:20 06:00 Total Bilirubin 2.4 H 2.0 H AST 698 H 857 H ALT 967 H 1106 H Alkaline Phosphatase 219 H 226 H A.phagocytophil DNA PCR Negative CMV IgG Ab E.chaffeensis DNA (PCR) Negative West Nile Virus IgG Ab Positive H 02/09/19 02/09/19 02/10/19 07:25 07:25 07:33 Total Bilirubin AST 883 H 894 H ALT 1178 H 1217 H Alkaline Phosphatase 195 H 216 H A.phagocytophil DNA PCR CMV IgG Ab 8.00 H E.chaffeensis DNA (PCR) West Nile Virus IgG Ab 02/11/19 06:40 Total Bilirubin 1.2 H AST 837 H ALT 1172 H Alkaline Phosphatase 215 H A.phagocytophil DNA PCR CMV IgG Ab E.chaffeensis DNA (PCR) West Nile Virus IgG Ab cmv igg positive, pcr pending ebv serology pending hep serology negative west nile IGg positive a/p abnl LFTS-appear to be trending down tick serologies all negative cmv and ebv pcr pending further w/u per GI
--- NOTE | 2019-02-12 18:39 | PN.GI ---
GI Progress Note Subjective: Patient states feeling well No acute events overnight - Objective Vital Signs: Vital Signs Temperature 98.1 F 02/12/19 14:52 Pulse Rate 59 L 02/12/19 14:52 Respiratory Rate 18 02/12/19 09:00 Blood Pressure 111/55 L 02/12/19 14:52 O2 Sat by Pulse Oximetry (%) 97 02/12/19 09:00 Constitutional: Calm Eyes: No: Sclera Icterus Cardiovascular: Yes: Regular Rate and Rhythm Respiratory: Yes: CTA Bilaterally Gastrointestinal Inspection: No: Distention ...Auscultate: Yes: Normoactive Bowel Sounds ...Palpate: Yes: Soft. No: Hepatomegaly, Splenomegaly, Tenderness Edema: No (No LE edema) Neurological: Yes: Alert Labs: CBC, BMP 02/12/19 06:49 02/12/19 06:49 INR, PTT INR 0.98 (0.83-1.09) 02/11/19 06:40 Hepatic Panel Total Bilirubin 1.2 mg/dL (0.2-1) H 02/12/19 06:49 Direct Bilirubin 1.2 mg/dL (0.0-0.2) H 02/09/19 07:25 AST 872 U/L (15-37) H 02/12/19 06:49 ALT 1268 U/L (13-61) H 02/12/19 06:49 Alkaline Phosphatase 218 U/L (45-117) H 02/12/19 06:49 Albumin 2.8 g/dl (3.4-5.0) L 02/12/19 06:49 Problem List - Problems (1) Elevated LFTs Assessment/Plan: Rise in Transaminases again. If continued rise, consider transfer to liver center where liver biopsy can be performed and pathology can review slides expeditiously. CMV/EBV PCR pending Code(s): R94.5 - ABNORMAL RESULTS OF LIVER FUNCTION STUDIES
[2019-02-13] MEDS: INSULIN SLIDING SCALE (NOVOLOG) 1 VIAL SQ SCH ×4 (06:25→21:24)
[2019-02-13] MEDS: LEVOTHYROXINE NA 125 MCG TABLET (FP) PO SCH (06:26)
[2019-02-13 07:30] LABS: HEMATOCRIT 39.5 % (35.4-49); HEMOGLOBIN 13.6 GM/dL (11.7-16.9); MCH 30.9 pg (25.7-33.7); MCHC 34.4 g/dl (32.0-35.9); MEAN CELL VOLUME 89.7 fl (80-96); MEAN PLT VOLUME 8.8 fl (7.5-11.1); PLATELET COUNT 189 K/MM3 (134-434); RBC 4.41 M/mm3 (4.00-5.60); RDW 15.4 % (11.9-15.9); WHITE BLOOD COUNT 4.1 K/mm3 (4.0-10.0)
--- NOTE | 2019-02-13 07:44 | PN.GI ---
GI Progress Note Subjective: DENIES ANY COMPLAINTS - NO ABDOMINAL PAIN / VOMITING/ NAUSEA - Objective Vital Signs: Vital Signs Temperature 98.1 F 02/13/19 06:00 Pulse Rate 63 02/13/19 06:00 Respiratory Rate 20 02/13/19 06:00 Blood Pressure 136/51 L 02/13/19 06:00 O2 Sat by Pulse Oximetry (%) 97 02/12/19 22:00 Constitutional: Well Nourished, No Distress Eyes: Yes: WNL HENT: Yes: WNL Neck: Yes: WNL Cardiovascular: Yes: WNL Respiratory: Yes: WNL Gastrointestinal Inspection: Yes: WNL ...Auscultate: Yes: Normoactive Bowel Sounds Extremities: Yes: WNL Edema: No Labs: INR, PTT INR 0.98 (0.83-1.09) 02/11/19 06:40 Problem List - Problems (1) Elevated LFTs Assessment/Plan: ALT RISING TREND INR AND LFT DAILY CMV IGG POSITIVE IGM NEGATIVE HE WOULD BENEFIT FROM A LIVER BIOPSY HOWEVER HE IS ON ASA THEREFORE REC [facility] Code(s): R94.5 - ABNORMAL RESULTS OF LIVER FUNCTION STUDIES (2) Fever Code(s): R50.9 - FEVER, UNSPECIFIED
[2019-02-13 08:13] LABS: ALBUMIN 2.9 g/dl (3.4-5.0); BILIRUBIN,TOTAL 1.1 mg/dL (0.2-1); BLOOD UREA NITROGEN 17.3 mg/dL (7-18); CALCIUM 8.8 mg/dL (8.5-10.1); CREATININE 0.9 mg/dL (0.55-1.3); POTASSIUM 4.2 mmol/L (3.5-5.1); TOT PROT 6.9 g/dl (6.4-8.2)
[2019-02-13] MEDS: amLODIPine BESYLATE 2.5 MG TABLET (FP) PO SCH (09:40)
[2019-02-13] MEDS: LISINOPRIL 5 MG TABLET (FP) PO SCH (09:40)
--- NOTE | 2019-02-13 11:51 | PN ---
Progress Note, Physician Chief Complaint: OFF ASA DAY #5 AWAITING LIVER BIOPSY - Current Medication List Current Medications: Active Medications Amlodipine Besylate (Norvasc -) 2.5 mg PO DAILY [facility] Last Admin: 02/13/19 09:40 Dose: 2.5 mg Insulin Aspart (Novolog Vial Sliding Scale -) 1 vial SQ ACHS [facility]; Protocol Last Admin: 02/13/19 06:25 Dose: Not Given Levothyroxine Sodium (Synthroid -) 125 mcg PO DAILY@0700 [facility] Last Admin: 02/13/19 06:26 Dose: 125 mcg Lisinopril (Prinivil) 5 mg PO DAILY [facility] Last Admin: 02/13/19 09:40 Dose: 5 mg - Objective Vital Signs: Vital Signs Temperature 97.7 F 02/13/19 10:00 Pulse Rate 75 02/13/19 10:00 Respiratory Rate 20 02/13/19 10:00 Blood Pressure 136/67 02/13/19 10:00 O2 Sat by Pulse Oximetry (%) 98 02/13/19 09:00 Constitutional: Yes: No Distress Cardiovascular: Yes: Regular Rate and Rhythm Respiratory: Yes: WNL Gastrointestinal: Yes: Soft Genitourinary: Yes: WNL Musculoskeletal: Yes: WNL Extremities: Yes: WNL Edema: No Peripheral Pulses WNL: Yes Integumentary: Yes: WNL Wound/Incision: Yes: Clean/Dry Neurological: Yes: WNL ...Motor Strength: WNL Psychiatric: Yes: WNL Labs: CBC, BMP 02/13/19 06:57 02/13/19 06:57 INR, PTT INR 0.98 (0.83-1.09) 02/11/19 06:40 Problem List - Problems (1) Elevated LFTs Code(s): R94.5 - ABNORMAL RESULTS OF LIVER FUNCTION STUDIES (2) Elevated bilirubin Code(s): R17 - UNSPECIFIED JAUNDICE (3) Fever Code(s): R50.9 - FEVER, UNSPECIFIED (4) Weight loss Code(s): R63.4 - ABNORMAL WEIGHT LOSS (5) Diabetes mellitus Code(s): E11.9 - TYPE 2 DIABETES MELLITUS WITHOUT COMPLICATIONS Qualifiers: Diabetes mellitus type: type 2 (6) Hypothyroidism Code(s): E03.9 - HYPOTHYROIDISM, UNSPECIFIED Qualifiers: Hypothyroidism type: unspecified Qualified Code(s): E03.9 - Hypothyroidism , unspecified Assessment/Plan OFF ASA DAY #5 FRIDAY CAN HAVE LIVER BIOPSY HERE OR AT [facility] MONITOR LFT NO LIVER TOXIC MEDS GI F/U APPRECIATED
[2019-02-13] MEDS ORDERED: INSULIN (NOVOLOG) ASPART 100 UNITS/ML 10ML VIAL ONE ×2 (21:13→21:54)
--- NOTE | 2019-02-14 08:17 | PN.GI ---
GI Progress Note Subjective: STATES HE IS FEELING WELL THIS MORNING - NO COMPLAINTS - Objective Vital Signs: Vital Signs Temperature 98.5 F 02/13/19 23:00 Pulse Rate 61 02/13/19 23:00 Respiratory Rate 20 02/13/19 23:00 Blood Pressure 134/66 02/13/19 23:00 O2 Sat by Pulse Oximetry (%) 97 02/13/19 22:00 Constitutional: Well Nourished, No Distress, Calm Eyes: Yes: WNL, Conjunctiva Clear HENT: Yes: WNL Neck: Yes: WNL Cardiovascular: Yes: WNL Respiratory: Yes: WNL, Regular, CTA Bilaterally Gastrointestinal Inspection: Yes: WNL ...Auscultate: Yes: Normoactive Bowel Sounds ...Palpate: Yes: Soft Extremities: Yes: WNL Edema: No Labs: CBC, BMP 02/13/19 06:57 02/13/19 06:57 INR, PTT INR 0.98 (0.83-1.09) 02/11/19 06:40 Problem List - Problems (1) Elevated LFTs Assessment/Plan: F/U LABS TREND INR AND LFT DAILY AVOID HEPATOTOXIC MEDICATIONS HE WOULD BENEFIT FROM A LIVER BIOPSY IF HIS LFT'S CONTINUE TO RISE. ASA HELD Code(s): R94.5 - ABNORMAL RESULTS OF LIVER FUNCTION STUDIES (2) Fever Code(s): R50.9 - FEVER, UNSPECIFIED
[2019-02-14] MEDS: amLODIPine BESYLATE 2.5 MG TABLET (FP) PO SCH (10:19)
[2019-02-14] MEDS: LISINOPRIL 5 MG TABLET (FP) PO SCH (10:19)
[2019-02-14] MEDS: INSULIN SLIDING SCALE (NOVOLOG) 1 VIAL SQ SCH ×4 (11:10→22:10)
--- NOTE | 2019-02-14 12:10 | PN ---
Progress Note, Physician Chief Complaint: AWAKE ALERT NAD EATING LUNCH - Current Medication List Current Medications: Active Medications Amlodipine Besylate (Norvasc -) 2.5 mg PO DAILY [facility] Last Admin: 02/14/19 10:19 Dose: 2.5 mg Insulin Aspart (Novolog Vial Sliding Scale -) 1 vial SQ ACHS [facility]; Protocol Last Admin: 02/14/19 11:10 Dose: 2 units Levothyroxine Sodium (Synthroid -) 125 mcg PO DAILY@0700 [facility] Last Admin: 02/13/19 06:26 Dose: 125 mcg Lisinopril (Prinivil) 5 mg PO DAILY [facility] Last Admin: 02/14/19 10:19 Dose: 5 mg - Objective Vital Signs: Vital Signs Temperature 97.4 F L 02/14/19 11:00 Pulse Rate 55 L 02/14/19 11:00 Respiratory Rate 20 02/14/19 11:00 Blood Pressure 138/65 02/14/19 11:00 O2 Sat by Pulse Oximetry (%) 98 02/14/19 09:00 Constitutional: Yes: No Distress Cardiovascular: Yes: Regular Rate and Rhythm Respiratory: Yes: WNL Gastrointestinal: Yes: Soft Musculoskeletal: Yes: WNL Extremities: Yes: WNL Edema: No Peripheral Pulses WNL: Yes Integumentary: Yes: WNL Wound/Incision: Yes: Clean/Dry Neurological: Yes: WNL ...Motor Strength: WNL Psychiatric: Yes: WNL Labs: CBC, BMP 02/13/19 06:57 02/13/19 06:57 INR, PTT INR 0.98 (0.83-1.09) 02/11/19 06:40 Problem List - Problems (1) Elevated LFTs Code(s): R94.5 - ABNORMAL RESULTS OF LIVER FUNCTION STUDIES (2) Elevated bilirubin Code(s): R17 - UNSPECIFIED JAUNDICE (3) Fever Code(s): R50.9 - FEVER, UNSPECIFIED (4) Weight loss Code(s): R63.4 - ABNORMAL WEIGHT LOSS (5) Diabetes mellitus Code(s): E11.9 - TYPE 2 DIABETES MELLITUS WITHOUT COMPLICATIONS Qualifiers: Diabetes mellitus type: type 2 (6) Hypothyroidism Code(s): E03.9 - HYPOTHYROIDISM, UNSPECIFIED Qualifiers: Hypothyroidism type: unspecified Qualified Code(s): E03.9 - Hypothyroidism , unspecified Assessment/Plan OFF ASA DAY #6 FRIDAY CAN HAVE LIVER BIOPSY HERE OR AT [facility] MONITOR LFT NO LIVER TOXIC MEDS GI F/U APPRECIATED
[2019-02-15] MEDS: INSULIN SLIDING SCALE (NOVOLOG) 1 VIAL SQ SCH ×4 (06:21→22:16)
[2019-02-15] MEDS: LEVOTHYROXINE NA 125 MCG TABLET (FP) PO SCH (06:22)
[2019-02-15 08:22] LABS: HEMATOCRIT 41.4 % (35.4-49); MCH 30.2 pg (25.7-33.7); MCHC 33.9 g/dl (32.0-35.9); MEAN PLT VOLUME 9.3 fl (7.5-11.1); PLATELET COUNT 212 K/MM3 (134-434); RBC 4.65 M/mm3 (4.00-5.60); RDW 15.7 % (11.9-15.9)
[2019-02-15 08:40] LABS: INR 0.98 (0.83-1.09); PROTHROMBIN TIME (PATIENT) 11.6 SEC (9.7-13.0)
[2019-02-15 09:21] LABS: ALBUMIN 3.1 g/dl (3.4-5.0); BILIRUBIN,TOTAL 1.2 mg/dL (0.2-1); BLOOD UREA NITROGEN 18.4 mg/dL (7-18); CREATININE 0.8 mg/dL (0.55-1.3); POTASSIUM 4.3 mmol/L (3.5-5.1); TOT PROT 7.4 g/dl (6.4-8.2)
[2019-02-15] MEDS: LISINOPRIL 5 MG TABLET (FP) PO SCH (09:57)
[2019-02-15] MEDS: amLODIPine BESYLATE 2.5 MG TABLET (FP) PO SCH (09:57)
[2019-02-15] MEDS ORDERED: INSULIN (NOVOLOG) ASPART 100 UNITS/ML 10ML VIAL ONE ×2 (10:59→17:24)
--- NOTE | 2019-02-15 12:39 | PN ---
Progress Note, Physician Chief Complaint: Elevated LFTs History of Present Illness: Previous notes and events reviewed awake and alert NAD denies chest pain denies abdominal pain, nausea, vomiting LFTs elevated pending liver biopsy - Current Medication List Current Medications: Active Medications Amlodipine Besylate (Norvasc -) 2.5 mg PO DAILY [facility] Last Admin: 02/15/19 09:57 Dose: 2.5 mg Insulin Aspart (Novolog Vial Sliding Scale -) 1 vial SQ ACHS [facility]; Protocol Last Admin: 02/15/19 10:59 Dose: 2 units Levothyroxine Sodium (Synthroid -) 125 mcg PO DAILY@0700 [facility] Last Admin: 02/15/19 06:22 Dose: 125 mcg Lisinopril (Prinivil) 5 mg PO DAILY [facility] Last Admin: 02/15/19 09:57 Dose: 5 mg - Objective Vital Signs: Vital Signs Temperature 97.9 F 02/15/19 05:59 Pulse Rate 58 L 02/15/19 05:59 Respiratory Rate 20 02/15/19 05:59 Blood Pressure 119/55 L 02/15/19 05:59 O2 Sat by Pulse Oximetry (%) 97 02/14/19 21:00 Constitutional: Yes: No Distress, Calm Eyes: Yes: Conjunctiva Clear HENT: Yes: Atraumatic Cardiovascular: Yes: Regular Rate and Rhythm Respiratory: Yes: Regular, CTA Bilaterally Gastrointestinal: Yes: Normal Bowel Sounds, Soft Musculoskeletal: Yes: WNL Extremities: Yes: WNL Edema: No Neurological: Yes: Alert, Oriented Psychiatric: Yes: Alert, Oriented Labs: CBC, BMP 02/15/19 07:35 02/15/19 07:35 INR, PTT INR 0.98 (0.83-1.09) 02/15/19 07:35 Microbiology 02/06/19 18:12 Blood - Peripheral Venous Blood Culture - Final NO GROWTH AFTER 5 DAYS INCUBATION 02/06/19 18:05 Blood - Peripheral Venous Blood Culture - Final NO GROWTH AFTER 5 DAYS INCUBATION 02/06/19 18:05 Blood - Peripheral Venous Blood Parasites Smear - Final 02/06/19 01:05 Urine - Urine Clean Catch Urine Culture - Final NO GROWTH OBTAINED Problem List - Problems (1) Elevated LFTs Assessment/Plan: -GI on board -ID on board -AST 837, ALT 1473, Alk phos 233 -GGT >800 -EBV pending -CMV IgG Ab positive 8.0 -lyme titers reviewed -West Nile Virus IgG AB positive -monitor LFTs and Coags -Spleen US shows negative, no definite sonographic abnormality -US shows normal abdominal US -Hepatitis profile reviewed -pending liver biopsy Code(s): R94.5 - ABNORMAL RESULTS OF LIVER FUNCTION STUDIES (2) Hypertension Assessment/Plan: -Amlodipine, Lisinopril -low Na diet Code(s): I10 - ESSENTIAL (PRIMARY) HYPERTENSION Qualifiers: Hypertension type: essential hypertension Qualified Code(s): I10 - Essential (primary) hypertension (3) Hypothyroidism Assessment/Plan: -Levothyroxine Code(s): E03.9 - HYPOTHYROIDISM, UNSPECIFIED Qualifiers: Hypothyroidism type: unspecified Qualified Code(s): E03.9 - Hypothyroidism , unspecified (4) Fever Assessment/Plan: -afebrile -tylenol prn for temp >100F -ID on board -ABT discontinued -blood parasite smear neg -BC and UC neg -EBV pending -CMV IgG Ab positive 8.0 -lyme titers reviewed -West Nile Virus IgG AB positive Code(s): R50.9 - FEVER, UNSPECIFIED (5) Headache Assessment/Plan: -Head CT scan unremarkable -Sinus CT scan no evidence of acute sinusitis, otomastoiditis -pain control Code(s): R51 - HEADACHE Assessment/Plan see problem list dvt ppx
--- NOTE | 2019-02-15 12:45 | PN ---
Progress Note, Physician History of Present Illness: AWAKE, ALERT NO COMPLAINTS OF ABDOMINAL PAIN NO N/V NO HEADACHE DENIES FEVER/ CHILLS AFEBRILE WBC WNL LFTS REMAIN ELEVATED TICK SEROLOGY NEGATIVE - Current Medication List Current Medications: Active Medications Amlodipine Besylate (Norvasc -) 2.5 mg PO DAILY ON LICENSE OF [facility] Last Admin: 02/15/19 09:57 Dose: 2.5 mg Insulin Aspart (Novolog Vial Sliding Scale -) 1 vial SQ ACHS ON LICENSE OF [facility]; Protocol Last Admin: 02/15/19 10:59 Dose: 2 units Levothyroxine Sodium (Synthroid -) 125 mcg PO DAILY@0700 ON LICENSE OF [facility] Last Admin: 02/15/19 06:22 Dose: 125 mcg Lisinopril (Prinivil) 5 mg PO DAILY ON LICENSE OF [facility] Last Admin: 02/15/19 09:57 Dose: 5 mg - Objective Vital Signs: Vital Signs Temperature 97.9 F 02/15/19 05:59 Pulse Rate 58 L 02/15/19 05:59 Respiratory Rate 20 02/15/19 05:59 Blood Pressure 119/55 L 02/15/19 05:59 O2 Sat by Pulse Oximetry (%) 97 02/14/19 21:00 Constitutional: Yes: No Distress Eyes: Yes: Conjunctiva Clear Cardiovascular: Yes: Regular Rate and Rhythm, S1, S2 Respiratory: Yes: CTA Bilaterally Gastrointestinal: Yes: Normal Bowel Sounds, Soft. No: Tenderness Edema: No Labs: CBC, BMP 02/15/19 07:35 02/15/19 07:35 INR, PTT INR 0.98 (0.83-1.09) 02/15/19 07:35 Assessment/Plan FEVER/ HEADACHE RESOLVED ELEVATED LFTS TICK SEROLOGY UNREVEALING FOR LIVER BX
--- NOTE | 2019-02-15 16:28 | EKG ---
Test Reason : Blood Pressure : / mmHG Vent. Rate : 070 BPM Atrial Rate : 070 BPM P-R Int : 156 ms QRS Dur : 112 ms QT Int : 412 ms P-R-T Axes : 078 051 -26 degrees QTc Int : 444 ms NORMAL SINUS RHYTHM INCOMPLETE LEFT BUNDLE BRANCH BLOCK NONSPECIFIC T WAVE ABNORMALITY ABNORMAL ECG WHEN COMPARED WITH ECG OF 15-SEP-2016 23:42, T WAVE INVERSION NO LONGER EVIDENT IN ANTERIOR LEADS Confirmed by NAOMI VITALE, ROGERIO ([id number]) on 02/15/2019 4:27:36 PM Referred By: KALE CASTANEDA Confirmed By:ROGERIO SALGADO MD
--- NOTE | 2019-02-15 16:30 | PN ---
Progress Note (short form) - Note Progress Note: GI follow up s/p liver biopsy today Eating well, no new events Vital Signs Temp 98.4 F 02/15/19 14:00 Pulse 58 L 02/15/19 14:00 Resp 15 02/15/19 14:00 BP 166/87 02/15/19 14:00 Pulse Ox 100 02/15/19 13:17 NAD, well appearing Anicteric Hepatic Panel Total Bilirubin 1.2 mg/dL (0.2-1) H 02/15/19 07:35 Direct Bilirubin 1.2 mg/dL (0.0-0.2) H 02/09/19 07:25 AST 837 U/L (15-37) H 02/15/19 07:35 ALT 1473 U/L (13-61) H 02/15/19 07:35 Alkaline Phosphatase 233 U/L (45-117) H 02/15/19 07:35 Albumin 3.1 g/dl (3.4-5.0) L 02/15/19 07:35 INR, PTT INR 0.98 (0.83-1.09) 02/15/19 07:35 EBV serologies still pending ASMA mildly elevated at 63 Mixed abnormal LFTs Await results of biopsy If patient stable tomorrow, could consider close interval outpatient follow up, as INR has remained normal
[2019-02-16] MEDS: INSULIN SLIDING SCALE (NOVOLOG) 1 VIAL SQ SCH ×4 (06:21→21:54)
[2019-02-16] MEDS: LEVOTHYROXINE NA 125 MCG TABLET (FP) PO SCH (06:22)
[2019-02-16 08:44] LABS: MCH 30.6 pg (25.7-33.7); MEAN CELL VOLUME 89.8 fl (80-96); MEAN PLT VOLUME 9.5 fl (7.5-11.1); PLATELET COUNT 199 K/MM3 (134-434); RDW 15.9 % (11.9-15.9)
[2019-02-16 09:16] LABS: ALBUMIN 2.8 g/dl (3.4-5.0); BILIRUBIN,TOTAL 1.4 mg/dL (0.2-1); BLOOD UREA NITROGEN 17.3 mg/dL (7-18); CALCIUM 8.8 mg/dL (8.5-10.1); CREATININE 0.8 mg/dL (0.55-1.3); POTASSIUM 4.2 mmol/L (3.5-5.1); TOT PROT 6.7 g/dl (6.4-8.2)
[2019-02-16] MEDS: amLODIPine BESYLATE 2.5 MG TABLET (FP) PO SCH (09:36)
[2019-02-16] MEDS: LISINOPRIL 5 MG TABLET (FP) PO SCH (09:36)
[2019-02-16 12:23] LABS: HEMATOCRIT 39.5 % (35.4-49); HEMOGLOBIN 13.5 GM/dL (11.7-16.9); WHITE BLOOD COUNT 4.4 K/mm3 (4.0-10.0)
--- NOTE | 2019-02-16 14:27 | PN ---
Progress Note, Physician Chief Complaint: Elevated LFTs History of Present Illness: Previous notes and events reviewed awake and alert NAD denies chest pain denies abdominal pain, nausea, vomiting LFTs elevated, beginning to trend down s/p liver biopsy 02/15/19 - Current Medication List Current Medications: Active Medications Amlodipine Besylate (Norvasc -) 2.5 mg PO DAILY [facility] Last Admin: 02/16/19 09:36 Dose: 2.5 mg Insulin Aspart (Novolog Vial Sliding Scale -) 1 vial SQ ACHS [facility]; Protocol Last Admin: 02/16/19 12:20 Dose: Not Given Levothyroxine Sodium (Synthroid -) 125 mcg PO DAILY@0700 [facility] Last Admin: 02/16/19 06:22 Dose: 125 mcg Lisinopril (Prinivil) 5 mg PO DAILY [facility] Last Admin: 02/16/19 09:36 Dose: 5 mg - Objective Vital Signs: Vital Signs Temperature 98.8 F 02/16/19 10:00 Pulse Rate 84 02/16/19 10:00 Respiratory Rate 20 02/16/19 10:00 Blood Pressure 136/78 02/16/19 10:00 O2 Sat by Pulse Oximetry (%) 95 02/16/19 10:00 Constitutional: Yes: No Distress, Calm Eyes: Yes: Conjunctiva Clear HENT: Yes: Atraumatic Cardiovascular: Yes: Regular Rate and Rhythm Respiratory: Yes: Regular, CTA Bilaterally Gastrointestinal: Yes: Normal Bowel Sounds, Soft Musculoskeletal: Yes: WNL Extremities: Yes: WNL Edema: No Wound/Incision: Yes: Dressing Dry and Intact Neurological: Yes: Alert, Oriented Psychiatric: Yes: Alert, Oriented Labs: CBC, BMP 02/16/19 06:55 02/16/19 06:55 INR, PTT INR 0.98 (0.83-1.09) 02/15/19 07:35 Microbiology 02/06/19 18:12 Blood - Peripheral Venous Blood Culture - Final NO GROWTH AFTER 5 DAYS INCUBATION 02/06/19 18:05 Blood - Peripheral Venous Blood Culture - Final NO GROWTH AFTER 5 DAYS INCUBATION 02/06/19 18:05 Blood - Peripheral Venous Blood Parasites Smear - Final 02/06/19 01:05 Urine - Urine Clean Catch Urine Culture - Final NO GROWTH OBTAINED Problem List - Problems (1) Elevated LFTs Assessment/Plan: -GI on board -ID on board -AST 653, ALT 1262, Alk phos 198 -GGT >800 -EBV pending -CMV IgG Ab positive 8.0 -lyme titers reviewed -West Nile Virus IgG AB positive -monitor LFTs and Coags -Spleen US shows negative, no definite sonographic abnormality -US shows normal abdominal US -Hepatitis profile reviewed -liver biopsy on 02/15/19--results pending -smooth muscle 63 Code(s): R94.5 - ABNORMAL RESULTS OF LIVER FUNCTION STUDIES (2) Hypertension Assessment/Plan: -Amlodipine, Lisinopril -low Na diet Code(s): I10 - ESSENTIAL (PRIMARY) HYPERTENSION Qualifiers: Hypertension type: essential hypertension Qualified Code(s): I10 - Essential (primary) hypertension (3) Hypothyroidism Assessment/Plan: -Levothyroxine Code(s): E03.9 - HYPOTHYROIDISM, UNSPECIFIED Qualifiers: Hypothyroidism type: unspecified Qualified Code(s): E03.9 - Hypothyroidism , unspecified (4) Fever Assessment/Plan: -afebrile -tylenol prn for temp >100F -ID on board -ABT discontinued -blood parasite smear neg -BC and UC neg -EBV pending -CMV IgG Ab positive 8.0 -lyme titers reviewed -West Nile Virus IgG AB positive Code(s): R50.9 - FEVER, UNSPECIFIED (5) Headache Assessment/Plan: -Head CT scan unremarkable -Sinus CT scan no evidence of acute sinusitis, otomastoiditis -pain control Code(s): R51 - HEADACHE Assessment/Plan see problem list dvt ppx if LFTs continue to trend down begin d/c planning
--- NOTE | 2019-02-16 16:23 | PN.GI ---
GI Progress Note Subjective: No acute events No abdominal pain S/P liver biopsy Overall states feeling well - Objective Vital Signs: Vital Signs Temperature 98.8 F 02/16/19 10:00 Pulse Rate 84 02/16/19 10:00 Respiratory Rate 20 02/16/19 10:00 Blood Pressure 136/78 02/16/19 10:00 O2 Sat by Pulse Oximetry (%) 95 02/16/19 10:00 Constitutional: Calm Eyes: No: Sclera Icterus Cardiovascular: Yes: Regular Rate and Rhythm Respiratory: Yes: CTA Bilaterally Gastrointestinal Inspection: Yes: Other (dressing in RUQ). No: Distention ...Auscultate: Yes: Normoactive Bowel Sounds ...Palpate: Yes: Soft. No: Hepatomegaly, Splenomegaly, Tenderness Edema: No (No LE edema) Neurological: Yes: Alert Labs: CBC, BMP 02/16/19 06:55 02/16/19 06:55 INR, PTT INR 0.98 (0.83-1.09) 02/15/19 07:35 Hepatic Panel Total Bilirubin 1.4 mg/dL (0.2-1) H 02/16/19 06:55 Direct Bilirubin 1.2 mg/dL (0.0-0.2) H 02/09/19 07:25 AST 653 U/L (15-37) H 02/16/19 06:55 ALT 1262 U/L (13-61) H 02/16/19 06:55 Alkaline Phosphatase 198 U/L (45-117) H 02/16/19 06:55 Albumin 2.8 g/dl (3.4-5.0) L 02/16/19 06:55 Laboratory Tests 02/10/19 02/11/19 02/15/19 07:33 06:40 07:35 Total Bilirubin 1.4 H 1.2 H 1.2 H AST 894 H 837 H 837 H ALT 1217 H 1172 H 1473 H Alkaline Phosphatase 216 H 215 H 233 H Albumin 2.9 L 02/16/19 06:55 Total Bilirubin 1.4 H AST 653 H ALT 1262 H Alkaline Phosphatase 198 H Albumin Problem List - Problems (1) Elevated LFTs Assessment/Plan: Overall improving LFTs EBV PCR pending and liver biopsy obtained For completion, MRI / MRCP ordered to further evaluate biliary tract and liver parenchyma Monitor LFTs Avoid hepatotoxic agents Code(s): R94.5 - ABNORMAL RESULTS OF LIVER FUNCTION STUDIES
[2019-02-17] MEDS: INSULIN SLIDING SCALE (NOVOLOG) 1 VIAL SQ SCH ×4 (06:34→21:50)
[2019-02-17] MEDS: LEVOTHYROXINE NA 125 MCG TABLET (FP) PO SCH ×2 (06:44→07:03)
[2019-02-17 08:05] LABS: HEMOGLOBIN 13.3 GM/dL (11.7-16.9); MCH 30.5 pg (25.7-33.7); MEAN CELL VOLUME 89.7 fl (80-96); MEAN PLT VOLUME 9.7 fl (7.5-11.1); PLATELET COUNT 201 K/MM3 (134-434); RBC 4.35 M/mm3 (4.00-5.60); RDW 15.1 % (11.9-15.9); WHITE BLOOD COUNT 3.6 K/mm3 (4.0-10.0)
[2019-02-17 08:17] LABS: ALBUMIN 2.8 g/dl (3.4-5.0); ALK PHOS 220 U/L (45-117); ANION GAP 6 MMOL/L (8-16); BILIRUBIN,TOTAL 0.8 mg/dL (0.2-1); BLOOD UREA NITROGEN 16.4 mg/dL (7-18); CALCIUM 8.7 mg/dL (8.5-10.1); CHLORIDE 104 mmol/L (98-107); CO2 29 mmol/L (21-32); CREATININE 0.8 mg/dL (0.55-1.3); GLUCOSE,RANDOM 145 mg/dL (74-106); SGOT/AST 496 U/L (15-37); SGPT/ALT > 1000 U/L (13-61); SODIUM 140 mmol/L (136-145); TOT PROT 6.6 g/dl (6.4-8.2)
[2019-02-17 08:27] LABS: ALBUMIN 2.8 g/dl (3.4-5.0); BILIRUBIN,DIRECT 0.6 mg/dL (0.0-0.2); BILIRUBIN,TOTAL 0.9 mg/dL (0.2-1); TOT PROT 6.6 g/dl (6.4-8.2)
[2019-02-17 08:35] LABS: INR 0.94 (0.83-1.09); PROTHROMBIN TIME (PATIENT) 11.1 SEC (9.7-13.0)
[2019-02-17 08:36] LABS: ACTIVATED PTT 41.6 SECONDS (25.2-36.5)
--- NOTE | 2019-02-17 09:39 | PN.GI ---
GI Progress Note Subjective: Pt seen/examined, continues to feel well. Denies abdominal pain, n/v, fever/ chills. No complaints. - Objective Vital Signs: Vital Signs Temperature 98.1 F 02/17/19 04:00 Pulse Rate 88 02/17/19 04:00 Respiratory Rate 20 02/17/19 04:00 Blood Pressure 131/77 02/17/19 04:00 O2 Sat by Pulse Oximetry (%) 95 02/16/19 22:00 Constitutional: Well Nourished, No Distress, Calm Cardiovascular: Yes: WNL, Regular Rate and Rhythm Respiratory: Yes: WNL, Regular, CTA Bilaterally ...Palpate: Yes: Other (Abd soft, nt, nd) Labs: CBC, BMP 02/17/19 06:51 02/17/19 06:51 INR, PTT INR 0.94 (0.83-1.09) 02/17/19 06:51 Problem List - Problems (1) Elevated LFTs Assessment/Plan: 68yo male h/o hypothyroidism presenting initially with fever and headaches with rising LFTs of unclear exact etiology predominantly hepatocellular pattern. Clinically doing well and overall improvement in LFTs noted (tranasminases decreased, alk phos and bili plateaued). Exact etiology remains unclear. No clinical or biochemical features to suggest impending liver failure. Liver biopsy results still pending. Had MRCP. -Continue to monitor daily LFTs and coags -Await liver biopsy results -Follow up MRCP results -Await EBV serologies -Continue to avoid nonessential hepatotoxic medications -Pt is anxious to leave however advised awaiting above results prior to determining dispo Code(s): R94.5 - ABNORMAL RESULTS OF LIVER FUNCTION STUDIES
[2019-02-17] MEDS: amLODIPine BESYLATE 2.5 MG TABLET (FP) PO SCH (09:47)
[2019-02-17] MEDS: LISINOPRIL 5 MG TABLET (FP) PO SCH (09:47)
--- NOTE | 2019-02-17 14:55 | PN ---
Progress Note, Physician Chief Complaint: Elevated LFTs History of Present Illness: Previous notes and events reviewed awake and alert NAD denies chest pain LFTs trending down s/p liver biopsy 02/15/19 abdominal MRCP on 02/16/19 - Current Medication List Current Medications: Active Medications Amlodipine Besylate (Norvasc -) 2.5 mg PO DAILY [facility] Last Admin: 02/17/19 09:47 Dose: 2.5 mg Insulin Aspart (Novolog Vial Sliding Scale -) 1 vial SQ ACHS [facility]; Protocol Last Admin: 02/17/19 12:12 Dose: 2 units Levothyroxine Sodium (Synthroid -) 125 mcg PO DAILY@0700 [facility] Last Admin: 02/17/19 07:03 Dose: 125 mcg Lisinopril (Prinivil) 5 mg PO DAILY [facility] Last Admin: 02/17/19 09:47 Dose: 5 mg - Objective Vital Signs: Vital Signs Temperature 98.8 F 02/17/19 10:00 Pulse Rate 65 02/17/19 10:00 Respiratory Rate 18 02/17/19 10:00 Blood Pressure 150/71 02/17/19 10:00 O2 Sat by Pulse Oximetry (%) 96 02/17/19 09:00 Constitutional: Yes: No Distress, Calm Eyes: Yes: Conjunctiva Clear HENT: Yes: Atraumatic Cardiovascular: Yes: Regular Rate and Rhythm Respiratory: Yes: Regular, CTA Bilaterally Gastrointestinal: Yes: Normal Bowel Sounds, Soft Musculoskeletal: Yes: Muscle Weakness Extremities: Yes: WNL Edema: No Neurological: Yes: Alert, Oriented Psychiatric: Yes: Alert, Oriented Labs: CBC, BMP 02/17/19 06:51 02/17/19 06:51 INR, PTT INR 0.94 (0.83-1.09) 02/17/19 06:51 Microbiology 02/06/19 18:12 Blood - Peripheral Venous Blood Culture - Final NO GROWTH AFTER 5 DAYS INCUBATION 02/06/19 18:05 Blood - Peripheral Venous Blood Culture - Final NO GROWTH AFTER 5 DAYS INCUBATION 02/06/19 18:05 Blood - Peripheral Venous Blood Parasites Smear - Final 02/06/19 01:05 Urine - Urine Clean Catch Urine Culture - Final NO GROWTH OBTAINED Problem List - Problems (1) Elevated LFTs Assessment/Plan: -GI on board -ID on board -AST 492, ALT 1072, Alk phos 223 -GGT >800 -EBV pending -CMV IgG Ab positive 8.0 -lyme titers reviewed -West Nile Virus IgG AB positive -monitor LFTs and Coags -Spleen US shows negative, no definite sonographic abnormality -US shows normal abdominal US -Hepatitis profile reviewed -liver biopsy on 02/15/19--results pending -pending MRCP results -smooth muscle 63 Code(s): R94.5 - ABNORMAL RESULTS OF LIVER FUNCTION STUDIES (2) Hypertension Assessment/Plan: -Amlodipine, Lisinopril -low Na diet Code(s): I10 - ESSENTIAL (PRIMARY) HYPERTENSION Qualifiers: Hypertension type: essential hypertension Qualified Code(s): I10 - Essential (primary) hypertension (3) Hypothyroidism Assessment/Plan: -Levothyroxine Code(s): E03.9 - HYPOTHYROIDISM, UNSPECIFIED Qualifiers: Hypothyroidism type: unspecified Qualified Code(s): E03.9 - Hypothyroidism , unspecified (4) Fever Assessment/Plan: -afebrile -tylenol prn for temp >100F -ID on board -blood parasite smear neg -BC and UC neg -EBV pending -CMV IgG Ab positive 8.0 -lyme titers reviewed -West Nile Virus IgG AB positive Code(s): R50.9 - FEVER, UNSPECIFIED (5) Headache Assessment/Plan: -Head CT scan unremarkable -Sinus CT scan no evidence of acute sinusitis, otomastoiditis -pain control Code(s): R51 - HEADACHE Assessment/Plan see problem list dvt ppx if LFTs continue to trend down begin d/c planning
[2019-02-18] MEDS: INSULIN SLIDING SCALE (NOVOLOG) 1 VIAL SQ SCH ×2 (06:12→11:49)
[2019-02-18] MEDS: LEVOTHYROXINE NA 125 MCG TABLET (FP) PO SCH (06:12)
[2019-02-18 09:44] LABS: BASO % 0.6 % (0-2.0); EOS % 3.5 % (0-4.5); HEMOGLOBIN 13.7 GM/dL (11.7-16.9); LYMPH % 50.5 % (8-40); MCH 30.3 pg (25.7-33.7); MCHC 33.5 g/dl (32.0-35.9); MEAN CELL VOLUME 90.4 fl (80-96); MEAN PLT VOLUME 9.6 fl (7.5-11.1); MONO % 11.7 % (3.8-10.2); NEUT % 33.7 % (42.8-82.8); PLATELET COUNT 200 K/MM3 (134-434); RBC 4.53 M/mm3 (4.00-5.60)
[2019-02-18 10:08] LABS: INR 0.97 (0.83-1.09); PROTHROMBIN TIME (PATIENT) 11.4 SEC (9.7-13.0)
[2019-02-18 10:20] LABS: BILIRUBIN,TOTAL 1.2 mg/dL (0.2-1); BLOOD UREA NITROGEN 18.8 mg/dL (7-18); CALCIUM 9.1 mg/dL (8.5-10.1); CREATININE 0.8 mg/dL (0.55-1.3); POTASSIUM 4.5 mmol/L (3.5-5.1)
[2019-02-18] MEDS: amLODIPine BESYLATE 2.5 MG TABLET (FP) PO SCH (11:19)
[2019-02-18] MEDS: LISINOPRIL 5 MG TABLET (FP) PO SCH (11:20)
[2019-02-18 11:21] VITALS: TEMP 97.6
--- NOTE | 2019-02-18 12:06 | DS ---
Physical Examination Vital Signs: Vital Signs Temperature 97.6 F 02/18/19 11:20 Pulse Rate 50 L 02/18/19 11:20 Respiratory Rate 19 02/18/19 11:20 Blood Pressure 149/88 02/18/19 11:20 O2 Sat by Pulse Oximetry (%) 96 02/17/19 22:00 Constitutional: Yes: No Distress, Calm Eyes: Yes: Conjunctiva Clear HENT: Yes: Atraumatic Neck: Yes: Supple Cardiovascular: Yes: Regular Rate and Rhythm Respiratory: Yes: Regular, CTA Bilaterally Gastrointestinal: Yes: Normal Bowel Sounds, Soft Musculoskeletal: Yes: WNL Extremities: Yes: WNL Edema: No Neurological: Yes: Alert, Oriented Psychiatric: Yes: Alert, Oriented Labs: CBC, BMP 02/18/19 08:10 02/18/19 08:10 Discharge Summary Reason For Visit: ELEVATED LIVER ENZYMES Current Active Problems Elevated LFTs (Acute) Elevated bilirubin (Acute) Fever (Acute) Headache (Acute) Hypothyroid (Acute) Loss of smell (Acute) Weight loss (Acute) Hospital Course: Patient is a 68 y/o male with past medical history of Hypothyroidism, HTN, HLD, and DM. Patient came to ER with complaints of fever and headache in frontal portion. Similar episode one week before. Labs showed severely elevated LFTs. Followed by GI and ID while inpatient. MRCP done and no CBD dilatation or stone. Liver biospy done with results pending. LFTs showing downtrend. Will need close followup by PMD and GI as outpatient. Condition: Stable - Instructions Diet, Activity, Other Instructions: FOllow up with PMD in on Friday02/22/19 Follow up with GI Dr Mustafa for liver biopsy results continue with medication as prescribed return to ER if develop severe pain, respiratory distress, chest pain Referrals: Nicholas Mustafa DO [Staff Physician] - Reinier Rowalnd MD [Staff Physician] - Disposition: VNS/HOME HEALTH CARE - Home Medications Comprehensive Discharge Medication List: Ambulatory Orders Amlodipine Besylate [Norvasc -] 2.5 mg PO DAILY #30 tablet 09/16/16 Aspirin [ASA -] 81 mg PO DAILY 09/16/16 Levothyroxine [Synthroid -] 125 mcg PO DAILY 09/16/16 Lisinopril [Prinivil] 5 mg PO DAILY 09/16/16 Simvastatin [Zocor -] 40 mg PO HS 09/16/16 metFORMIN HCL [Glucophage -] 850 mg PO BID 09/16/16 Albuterol Sulfate Inhaler - [Ventolin HFA Inhaler -] 1 - 2 inh PO Q4H #1 inhaler 05/24/18
[2019-02-18 14:24] VITALS: BP 132/68; PULSE 62
--- NOTE | 2019-02-26 10:06 | PATH ---
Surgical Pathology Report Patient Name: ASHISH BRAR Med. Rec. #: [id number] /Age/Gender: 1950 (Age: 68) / M Account: [id number] Location: [address] [place] [address]/[facility] Taken: 02/15/2019 Received: 02/15/2019 Reported: 02/26/2019 Physicians: Mary Garcia M.D. Specimen(s) Received LIVER BIOPSY Clinical History Elevated liver function tests, H/o diabetes, HTN, Hyperlipidemia Final Diagnosis LIVER, BIOPSY: MODERATE ACTIVE HEPATITIS, see comment. TRICHROME STAIN SHOWS NO SIGNIFICANT FIBROSIS. RETICULIN STAIN SHOWS AN INTACT SINUSOIDAL ARCHITECTURE. IRON STAIN IS NEGATIVE FOR SIDEROSIS. PAS WITH DIASTASE STAIN IS NEGATIVE FOR [id number] GLOBULES. DIAGNOSIS: NEGATIVE for steatosis, cholestasis, cholangitis/bile duct injury, granulomas, or malignancy. Comment: The biopsy shows a moderate active hepatitis with mixed lobular inflammation including lymphocytes, eosinophils and foci of increased numbers of plasma cells. Scattered acidophil bodies and mild portal inflammation are also present. The patient is noted to have been on a statin and to have a positive smooth muscle antibody. The differential diagnosis includes immune-mediated injry (autoimmune hepatitis versus drug induced autoimmune-like hepatitis), drug/toxin-induced injury and infection (including viral hepatitis E). Clinical and laboratory correlation ecommended. Note: The above diagnosis reflects Dr. Rivka Taylor's opinions, from Department of Pathology, [facility], [place] [address]. Electronically Signed Letty Deal M.D. Gross Description Received in formalin labeled "liver tissue," are 2 hua, cylindrical portions of soft tissue measuring 1.1 and 1.6 cm in length and averaging 0.1 cm in diameter. The specimens are submitted in toto in one cassette. 02/15/201902/15/2019
== END 2019-02-18 15:49 | disposition home health service (06) | DRG 442 ==
LOC: JER 22:30 → JERBED 02-06 02:53 → J6S 02-06 04:16
PROVIDERS: ADMIT Family Medicine; ATTEND Family Medicine
DX: R94.5 Abnormal results of liver function studies (principal); R17 Unspecified jaundice; R50.9 Fever, unspecified; R63.4 Abnormal weight loss; E03.9 Hypothyroidism, unspecified; E11.9 Type 2 diabetes mellitus without complications; J32.9 Chronic sinusitis, unspecified; R51 Headache; I10 Essential (primary) hypertension; Z79.84 Long term (current) use of oral hypoglycemic drugs; Z80.0 Family history of malignant neoplasm of digestive organs; R43.0 Anosmia
CPT/HCPCS: 36415; 70450-TC; 70486-TC; 71046-TC-FY; 74182-TC; 76705-TC; 76942-TC; 80053; 80061; 80076; 81003; 82103; 82248; 82550; 82728; 82930; 82962; 82977; 83036; 83516; 83540; 83550; 83615; 83721; 84443; 85025; 85027; 85610; 85730; 86038; 86618; 86644; 86645; 86663; 86664; 86704; 86706; 86707; 86708; 86709; 86753; 86788; 86789; 86803; 86850; 86870; 86900; 86901; 86902; 87040; 87086; 87207; 87340; 87496; 87497; 87799; 87899; 88305-TC; 93005; 93010; 99283-25; A9579; J0131; J7030

== ENCOUNTER 2021-06-12 12:01 | Emergency (ER) | payer OTHER ==
[2021-06-12 12:32] VITALS: TEMP 98.7; BMI 24.5
[2021-06-12] MEDS ORDERED: ACETAMINOPHEN 1000 MG/100 ML VIAL IVPB ONE (13:37)
[2021-06-12] MEDS ORDERED: ACETAMINOPHEN INJECTION 100 ML IVPB ONE (14:01)
[2021-06-12 14:37] LABS: BASO % 0.5 % (0-2.0); EOS % 3.4 % (0-4.5); HEMATOCRIT 39.6 % (35.4-49); HEMOGLOBIN 13.3 GM/dL (11.7-16.9); LYMPH % 38.8 % (8-40); MCHC 33.7 g/dl (32.0-35.9); MEAN CELL VOLUME 86.2 fl (80-96); MEAN PLT VOLUME 8.2 fl (7.5-11.1); MONO % 7.6 % (3.8-10.2); NEUT % 49.7 % (42.8-82.8); PLATELET COUNT 188 10^3/uL (134-434); RBC 4.59 M/mm3 (4.00-5.60)
[2021-06-12 14:59] LABS: CALCIUM 9.8 mg/dL (8.5-10.1)
[2021-06-12 15:00] LABS: BLOOD UREA NITROGEN 13.4 mg/dL (7-18)
[2021-06-12 15:03] LABS: CREATININE 0.8 mg/dL (0.55-1.3)
[2021-06-12 15:05] LABS: BILIRUBIN,TOTAL 0.4 mg/dL (0.2-1); TOT PROT 7.6 g/dl (6.4-8.2)
[2021-06-12 16:13] VITALS: BP 147/80; PULSE 89
== END 2021-06-12 16:13 | disposition home or self-care (01) ==
LOC: JER 12:01
PROC: 3E033GC Introduction of Other Therapeutic Substance into Peripheral Vein, Percutaneous Approach (ICD-10-PCS; principal; 2021-06-12)
DX: K46.9 Unspecified abdominal hernia without obstruction or gangrene (principal)
CPT/HCPCS: 36415; 74177-TC; 80053; 85025; 99285-25; J0131; Q9967

== ENCOUNTER 2021-12-02 21:46 | Emergency (ER) | payer OTHER ==
[2021-12-02 22:03] VITALS: BMI 23.6
[2021-12-02] MEDS ORDERED: ACETAMINOPHEN 1000 MG/100 ML BAG IVPB ONE (22:08)
[2021-12-02] MEDS ORDERED: ACETAMINOPHEN INJECTION 100 ML IVPB ONE (22:25)
[2021-12-02] MEDS ORDERED: SODIUM CHLORIDE 0.9% 500 ML INFUS.BAG IV ONE (22:50)
[2021-12-02 23:09] LABS: VENOUS O2 SATURATION 67.4 % (70-80); VENOUS PCO2 40.6 mmHg (38-52); VENOUS PH 7.432 (7.310-7.410)
[2021-12-02 23:12] LABS: BASO % 0.4 % (0-2.0); EOS % 2.8 % (0-4.5); HEMATOCRIT 33.8 % (35.4-49); HEMOGLOBIN 11.3 GM/dL (11.7-16.9); LYMPH % 24.8 % (8-40); MCH 27.1 pg (25.7-33.7); MCHC 33.5 g/dl (32.0-35.9); MEAN CELL VOLUME 80.9 fl (80-96); MONO % 15.6 % (3.8-10.2); NEUT % 56.4 % (42.8-82.8); PLATELET COUNT 182 10^3/uL (134-434); RBC 4.17 M/mm3 (4.00-5.60); RDW 14.7 % (11.9-15.9); WHITE BLOOD COUNT 6.1 K/mm3 (4.0-10.0)
[2021-12-02 23:17] LABS: INR 0.98 (0.83-1.09); PROTHROMBIN TIME (PATIENT) 11.3 SEC (9.7-13.0)
[2021-12-02 23:39] LABS: ALBUMIN 3.4 g/dl (3.4-5.0); BLOOD UREA NITROGEN 11.2 mg/dL (7-18); CALCIUM 8.7 mg/dL (8.5-10.1)
[2021-12-02 23:44] LABS: BILIRUBIN,TOTAL 0.4 mg/dL (0.2-1); TOT PROT 7.4 g/dl (6.4-8.2)
[2021-12-03 01:16] LABS: PH,URINE 7.5 (5.0-8.0); URINE APPEARANCE CLEAR; URINE BILIRUBIN NEGATIVE (NEGATIVE); URINE COLOR YELLOW; URINE GLUCOSE (UA) NEGATIVE (NEGATIVE); URINE KETONE NEGATIVE (NEGATIVE); URINE LEUK ESTERASE NEGATIVE (NEGATIVE); URINE NITRITE NEGATIVE (NEGATIVE); URINE PROTEIN TRACE (NEGATIVE)
[2021-12-03 02:19] VITALS: BP 110/52; PULSE 76; TEMP 98.2
== END 2021-12-03 03:10 | disposition home or self-care (01) ==
LOC: JER 21:46
PROC: 3E0333Z Introduction of Anti-inflammatory into Peripheral Vein, Percutaneous Approach (ICD-10-PCS; principal; 2021-12-02)
DX: R50.9 Fever, unspecified (principal); R51.9 Headache, unspecified; R42 Dizziness and giddiness
CPT/HCPCS: 0241U-QW; 36415; 71045-TC-FY; 80053; 81003; 82803; 83605; 85025; 85610; 85730; 86850; 86870; 86900; 86901; 86902; 87040; 87086; 93005; 93010; 99285-25

== ENCOUNTER 2022-01-17 20:57 | Emergency (ER) | payer OTHER ==
[2022-01-17 21:08] VITALS: BP 130/81; PULSE 103; TEMP 100.9; BMI 27.4
[2022-01-17] MEDS ORDERED: IBUPROFEN 600 MG TABLET (FP) PO ONE ×2 (21:16→21:20)
== END 2022-01-17 21:26 | disposition home or self-care (01) ==
LOC: FER 20:57
DX: R51.9 Headache, unspecified (principal); R50.9 Fever, unspecified
CPT/HCPCS: 99283-25

== ENCOUNTER 2023-11-01 12:18 | Emergency (ER) | payer OTHER ==
[2023-11-01 12:32] VITALS: BMI 25.2
[2023-11-01] MEDS ORDERED: IBUPROFEN 600 MG TABLET (FP) PO ONE (12:41)
[2023-11-01 12:59] LABS: BASO % 0.3 % (0-2.0); EOS % 1.3 % (0-4.5); HEMATOCRIT 34.9 % (35.4-49); HEMOGLOBIN 11.3 GM/dL (11.7-16.9); LYMPH % 27.3 % (8-40); MCH 23.6 pg (25.7-33.7); MCHC 32.2 g/dl (32.0-35.9); MEAN CELL VOLUME 73.4 fl (80-96); MEAN PLT VOLUME 7.6 fl (7.5-11.1); MONO % 15.7 % (3.8-10.2); NEUT % 55.4 % (42.8-82.8); PLATELET COUNT 199 10^3/uL (134-434); RBC 4.76 M/mm3 (4.00-5.60); RDW 16.8 % (11.9-15.9)
[2023-11-01] MEDS: LACTATED RINGERS SOLUTION 1000 ML INFUS.BAG IV ONE (12:59)
[2023-11-01] MEDS: IBUPROFEN 600 MG TABLET (FP) PO ONE (12:59)
[2023-11-01 13:20] LABS: POTASSIUM 4.1 mmol/L (3.5-5.1)
[2023-11-01 13:22] LABS: CALCIUM 9.2 mg/dL (8.5-10.1)
[2023-11-01 13:23] LABS: ALBUMIN 3.8 g/dl (3.4-5.0); BLOOD UREA NITROGEN 14.6 mg/dL (7-18); MAGNESIUM 2.2 mg/dL (1.8-2.4)
[2023-11-01 13:26] LABS: CREATININE 1.1 mg/dL (0.55-1.3)
[2023-11-01 13:28] LABS: BILIRUBIN,TOTAL 0.3 mg/dL (0.2-1); TOT PROT 7.6 g/dl (6.4-8.2)
[2023-11-01 13:53] VITALS: TEMP 98.2
[2023-11-01 15:17] VITALS: BP 132/74; PULSE 89; RESP 17
== END 2023-11-01 15:18 | disposition home or self-care (01) ==
LOC: JER 12:18
DX: U07.1 COVID-19 (principal); R50.9 Fever, unspecified; R53.1 Weakness; J02.9 Acute pharyngitis, unspecified; M79.10 Myalgia, unspecified site; R51.9 Headache, unspecified; R05.9 Cough, unspecified; R06.00 Dyspnea, unspecified; R00.0 Tachycardia, unspecified; R42 Dizziness and giddiness
CPT/HCPCS: 0241U-QW; 36415; 71046-TC-FY; 80053; 82962; 83735; 84484; 85025; 86850; 86900; 86901; 87651; 93005; 93010; 99285-25

== ENCOUNTER 2023-11-13 00:53 | Emergency (ER) | payer OTHER ==
[2023-11-13 01:08] VITALS: TEMP 97.8; BMI 27.1
[2023-11-13 01:33] LABS: EOS % 3.5 % (0-4.5); HEMATOCRIT 31.3 % (35.4-49); HEMOGLOBIN 10.3 GM/dL (11.7-16.9); LYMPH % 33.2 % (8-40); MCH 24.1 pg (25.7-33.7); MCHC 32.8 g/dl (32.0-35.9); MEAN CELL VOLUME 73.7 fl (80-96); MEAN PLT VOLUME 7.3 fl (7.5-11.1); MONO % 10.6 % (3.8-10.2); NEUT % 51.7 % (42.8-82.8); PLATELET COUNT 374 10^3/uL (134-434); RBC 4.25 M/mm3 (4.00-5.60); RDW 17.4 % (11.9-15.9); WHITE BLOOD COUNT 7.6 K/mm3 (4.0-10.0)
[2023-11-13 02:25] LABS: POTASSIUM 4.1 mmol/L (3.5-5.1)
[2023-11-13 02:27] LABS: CALCIUM 9.4 mg/dL (8.5-10.1)
[2023-11-13 02:28] LABS: ALBUMIN 3.4 g/dl (3.4-5.0); BLOOD UREA NITROGEN 11.6 mg/dL (7-18)
[2023-11-13 02:31] LABS: CREATININE 1.1 mg/dL (0.55-1.3)
[2023-11-13 02:32] LABS: BILIRUBIN,TOTAL 0.2 mg/dL (0.2-1); TOT PROT 7.4 g/dl (6.4-8.2)
[2023-11-13] MEDS ORDERED: guaiFENesin 200 MG/10 ML 10 ML UNIT-DOSE CUPS ONE (03:44)
[2023-11-13] MEDS: guaiFENesin 200 MG/10 ML 10 ML UNIT-DOSE CUPS PO ONE (03:47)
[2023-11-13 03:58] VITALS: BP 138/84; PULSE 80; RESP 16
== END 2023-11-13 03:58 | disposition home or self-care (01) ==
LOC: JER 00:53
DX: R05.9 Cough, unspecified (principal); R06.02 Shortness of breath
CPT/HCPCS: 36415; 71045-TC-FY; 80053; 83735; 84484; 85025; 99284-25